=== PATIENT | male | born 1970 | race Two or more races ===

== ENCOUNTER 2022-03-06 11:15 | Outpatient (REF) | payer OTHER, MEDICAID, SELFPAY ==
[2022-03-06 14:01] LABS: Estimated Average Glucose 229 mg/dL; Hemoglobin A1c % 9.6 %
[2022-03-06 14:25] LABS: Alanine Aminotransferase 27 U/L (0-40); Albumin Level 4.7 g/dL (3.5-5.0); Alkaline Phosphatase 55 U/L (39-117); Anion Gap 16 (12-20); Aspartate Amino Transferase 29 U/L (5-37); Bilirubin Total 0.2 mg/dL (0.0-1.0); Blood Urea Nitrogen 14 mg/dL (9-16); Calcium 9.3 mg/dL (8.4-10.2); Carbon Dioxide 26 mmol/L (22-29); Chloride 100 mmol/L (96-108); Cholesterol 217 mg/dL; Estimated Glomerular Filt Rate > 60; Glucose Fasting 205 mg/dL (60-99); HDL Cholesterol 25 mg/dL; Potassium 4.7 mmol/L (3.3-5.1); Sodium 137 mmol/L (135-145); Total Protein 7.7 g/dL (6.5-8.0); Triglycerides 516 mg/dL
[2022-03-06 14:35] LABS: TSH reflex Free T4 1.15 uIU/mL (0.32-4.0)
== END 2022-03-06 11:16 | disposition home or self-care (01) ==
LOC: HO.WFDLDS 11:15
PROVIDERS: Visit Provider Family Medicine
DX: Z00.00 Encounter for general adult medical examination without abnormal findings (principal); Z12.5 Encounter for screening for malignant neoplasm of prostate; R73.01 Impaired fasting glucose
CPT/HCPCS: 36415; 80053; 80061; 83036; 84153; 84443

== ENCOUNTER 2022-05-14 10:11 | Outpatient (REF) | payer OTHER, MEDICAID, SELFPAY ==
[2022-05-14 12:25] LABS: Anion Gap 12 (12-20); Blood Urea Nitrogen 14 mg/dL (9-16); Calcium 9.4 mg/dL (8.4-10.2); Carbon Dioxide 29 mmol/L (22-29); Chloride 102 mmol/L (96-108); Cholesterol 169 mg/dL; Estimated Glomerular Filt Rate > 60; Glucose Fasting 171 mg/dL (60-99); HDL Cholesterol 28 mg/dL; LDL Cholesterol Calculated 105 mg/dl; Sodium 138 mmol/L (135-145); Triglycerides 182 mg/dL
[2022-05-15 09:10] LABS: LDL Cholesterol Direct 99 mg/dL (<100)
== END 2022-05-14 10:12 | disposition home or self-care (01) ==
LOC: HO.WFDLDS 10:11
PROVIDERS: Visit Provider Family Medicine
DX: Z00.00 Encounter for general adult medical examination without abnormal findings (principal); E11.9 Type 2 diabetes mellitus without complications; E78.1 Pure hyperglyceridemia
CPT/HCPCS: 36415; 80048; 80061; 83721

== ENCOUNTER 2023-03-06 14:35 | Outpatient (REF) | payer OTHER, MEDICAID, SELFPAY ==
[2023-03-06 15:31] LABS: Appearance Urine Clear; Color Urine Yellow; Glucose Urine UA Negative (Negative); Leukocyte Esterase Urine Trace (Negative); Nitrite Urine Negative (Negative); Specific Gravity - Urine 1.015 (1.005-1.025); UMIC TRIGGER UA YES; Urine Blood Negative (Negative); Urine Ketones Negative (Negative); Urine Protein Negative (Neg-Trace)
[2023-03-06 15:37] LABS: Bacteria Urine None Seen (None Seen); Hyaline Casts Urine 0-2 /LPF (0-2); RBC Urine 0-2 /HPF (0-2); Squamous Epithelial Cell Urine 0-2 /HPF (0-2); WBC Urine 0-5 /HPF (0-5)
[2023-03-06 15:43] LABS: Creatinine Urine 86.43 mg/dL; Microalbumin Urine < 5.0 mg/L
[2023-03-06 15:51] LABS: Alanine Aminotransferase 24 U/L (0-40); Albumin Level 4.4 g/dL (3.5-5.0); Alkaline Phosphatase 43 U/L (39-117); Anion Gap 10 (12-20); Aspartate Amino Transferase 32 U/L (5-37); Bilirubin Total 0.4 mg/dL (0.0-1.0); Blood Urea Nitrogen 14 mg/dL (9-16); Calcium 9.5 mg/dL (8.4-10.2); Carbon Dioxide 27 mmol/L (22-29); Chloride 105 mmol/L (96-108); Cholesterol 137 mg/dL (<200); Estimated Glomerular Filt Rate > 60; Glucose Fasting 216 mg/dL (60-99); HDL Cholesterol 33 mg/dL (>40); LDL Cholesterol Calculated 77 mg/dL (<100); Potassium 4.4 mmol/L (3.3-5.1); Sodium 138 mmol/L (135-145); Total Protein 7.2 g/dL (6.5-8.0); Triglycerides 137 mg/dL (<150)
[2023-03-06 16:00] LABS: Prostate Specific Antigen Scr 1.66 ng/mL (<0.05-4.0)
[2023-03-06 16:05] LABS: TSH reflex Free T4 0.83 uIU/mL (0.32-4.0)
== END 2023-03-06 14:36 | disposition home or self-care (01) ==
LOC: HO.LAB 14:35
PROVIDERS: PCP Family Medicine; Visit Provider Family Medicine
DX: Z00.00 Encounter for general adult medical examination without abnormal findings (principal); Z12.5 Encounter for screening for malignant neoplasm of prostate; I10 Essential (primary) hypertension
CPT/HCPCS: 36415; 80053; 80061; 81001; 82570; 84153; 84443

== ENCOUNTER 2023-03-11 09:00 | Outpatient (AMB) | payer OTHER, MEDICAID, SELFPAY ==
[2023-03-11 09:04] VITALS: BP 120/78; PULSE 82; O2SAT 97; BMI 36.0
--- NOTE | 2023-03-11 09:04 | A.OFFPC_ITS ---
Vital Signs 03/11/23 09:04 Height 5 ft 10 in Weight 251 lb 2 oz BMI 36.0 BP 120/78 Blood Pressure Location Lt brachial Position Sitting Pulse 82 Pulse Source Pulse Oximeter Pulse Oximetry (%) 97 Oxygen Delivery Method Room Air Intake Visit Reasons: CPE with f/u labs and health maint Intake Note: Patient is here for physical today. Allergies No Known Allergies Allergy (Verified 03/11/23 09:05) Tobacco use date assessed: 03/11/23 Dental Screening Dental Screen Date: 03/11/23 Did you have a dental visit in the last 12 months?: Yes Did you have a dental problem in the last 6 months where you did not have access to dental care?: No Was dental information given to patient?: Patient has dentist HPI CPE with f/u labs and health maint HPI Details 52 y/o male presents for a CPE with f/u labs and health maintenance. Labs were drawn 03/06/23. Reviewed labs with pt. Triglycerides 137. TC 137. LDL 77. HDL low at 33. He is on artovastatin 10mg. A1c 7.5% 03/11/23. He is on Jardiance 25mg, glipizide 5mg, insulin degludec 84 units and insulin Lantus 48 units. Blood pressure today is 120/78. He is on lisinopril 15mg daily. Pt reports decreased hearing. [facility] Medical History Diabetes Surgical History H/O eye surgery Social History Housing: House Patient Tobacco Use Status: Never used Tobacco e-Cigarette/Vaping Use: Never Used Second Hand Smoke Exposure: No service: No Current occupational status: employed Current occupational exposures/hazards: No Cognitive needs: No Hearing needs: No Vision needs: No Questionnaire Thrive Questionnaire Date Thrive assessed: 05/15/22 SHARON-7 AMB Questionnaire SHARON-7 Date SHARON - 7 assessed: 08/15/22 Source: Developed by Drs. Ar Peres, Luann Wong, Philip Cosme and colleagues, with an educational efe from [employer]. Review of Systems Const Denies chills, Denies fatigue, Denies fever(s), Denies headache(s) and Denies weakness Eyes Denies change in vision ENT Denies dizziness, Denies headache(s), Denies hearing loss, Denies nasal congestion, Denies sinus pain, Denies sinus pressure and Denies sore throat Card Denies chest pain, Denies lightheadedness, Denies dyspnea and Denies other (palpitations) Resp Denies cough, Denies dyspnea and Denies wheezing GI Denies abdominal pain, Denies melena, Denies hematochezia, Denies change in bowel habits, Denies dyspepsia and Denies nausea Denies hematuria and Denies dysuria Musc Denies abnormal gait, Denies myalgias, Denies arthralgias, Denies numbness and Denies tingling Skin/Breast Denies rash, Denies unusual bruising and Denies wounds Neuro Denies abnormal gait, Denies dizziness, Denies headache(s), Denies memory loss, Denies numbness, Denies Sensory deficit (Neuro), Denies tingling and Denies we akness Psych Denies anxiety, Denies depression and Denies memory loss Endo Denies cold intolerance, Denies fatigue, Denies heat intolerance, Denies po lydipsia and Denies polyuria David/Lymph Denies easy bleeding and Denies easy bruising Aller/Immun Denies wheezing Physical exam (Primary Care) Vital Signs: Last Vital Signs Pulse 82 03/11/23 09:04 BP 120/78 03/11/23 09:04 Pulse Ox 97 03/11/23 09:04 Oxygen Delivery Method Room Air 03/11/23 09:04 BMI result Body Mass Index 36.0 Tobacco/Smoking Status: Tobacco use Status Tobacco use date assessed 03/11/23 03/11/23 09:05 Patient Tobacco Use Status Never used Tobacco 03/11/23 09:05 e-Cigarette/Vaping Use Never Used 03/11/23 09:05 Thrive Assessment: Date of Thrive Assessment Date Thrive assessed 05/15/22 03/11/23 09:05 Const General: no acute distress, well developed, alert and awake Nutritional Appearance: well nourished Orientation/consciousness: patient oriented x3 HENMT Head: Yes normocephalic and Yes atraumatic Ears: hearing grossly normal bilaterally and TM's normal bilaterally General nose exam: Normal external nose present and Normal nares present Mouth: Normal oral and palatal mucosa present and moist mucous membranes Teeth and gingiva: dentition normal Throat: Yes posterior oropharynx normal Eyes General: appearance normal, both eyes and all related structures Pupils: Equal, round and reactive pupils present and Pupil accommodation reflex normal EOM: EOMs intact bilaterally Neck Neck: Yes normal visual inspection, Yes no lymphadenopathy and Yes trachea midline Thyroid: Thyroid normal Carotids: no bruits Lymphatic: no lymphadenopathy noted Chest Chest palpation & inspection: normal inspection of the chest Resp Effort & Inspection: normal respiratory effort Auscultation: clear to auscultation bilaterally Cardio Rate: regular rate Rhythm: regular rhythm Heart sounds: S1 normal heart sound present, S2 normal heart sound present, no g allops, no murmurs and no rubs Bruits: no abdominal aortic bruits and no carotid bruits GI Palpation (GI): No Abdominal aortic bruit present, Soft to palpation, nontender, No hepatosplenomegaly present and No Rebound tenderness present Auscultation: normal bowel sounds General: Yes no CVA tenderness Back/Spine/Pelvis Back: no CVA tenderness Cervical Spine: cervical ROM normal and No Cervical spine tenderness Thoracic/Lumbar Spine: thoraco-lumbar ROM normal, No pain with thoraco-lumbar ROM, No thoracic spinal tenderness and No lumbar spinal tenderness Skin Other: Raised inflammatory lesions bilateral forearms and ankles Lesions: no lesions Rashes: no rashes Trauma: no lacerations or abrasions Wounds: no wounds Nails: normal Neuro General: patient oriented x3 Cranial nerves: Yes Equal, round and reactive pupils present Cognition (Neuro): normal cognition Gait exam (Neuro): Normal gait present Motor exam (neuro): 5/5 motor strength present throughout Sensory Exam: No Sensory deficit (Neuro) Deep tendon reflexes (DTR's): Right patellar reflex intensity grade: 2+ and Left patellar reflex intensity grade: 2+ Extrem General: Yes normal to inspection and No edema Psych Appearance: grossly normal Affect: normal affect Attitude: cooperative Thought process: Normal thought process present Results AMB Hemoglobin A1c AMB Hemoglobin A1c 7.5 % Last Edit by Joyce Landaverde CMA on 03/11/23 09:21 Results Reviewed Results Reviewed: Laboratory Last Values Hgb A1c (Clinic) 7.5 % (4.0-6.0) H 03/11/23 09:17 Assessment and Plan Assessment & Plan (1) Adult general medical exam: Code(s): Z00.00 - Encounter for general adult medical examination without abnormal findings Plan: 52-year-old male presents for complete physical exam Encouraged healthy diet with active lifestyle and plenty of exercise (2) Hypertension: Code(s): I10 - Essential (primary) hypertension Plan: Blood pressure is controlled. Goal is less than 140/90 Continue current medication (3) Hyperlipidemia: Code(s): E78.5 - Hyperlipidemia, unspecified Plan: TC and LDL cholesterol are controlled on atorvastatin 10 mg daily. HDL is still too low though it has improved. Encouraged exercise (4) Diabetes: Code(s): E11.9 - Type 2 diabetes mellitus without complications Plan: A1c has worsened from 7.1% to 7.5%. Goal is less than 7.0% He has been taking glipizide ER 5 mg daily and I have encouraged him to increase this to 10 mg daily. He will continue his regimen of Jardiance, Lantus and metformin as prescribed. He is taking Lantus 48 units daily though med list says 44. Will update med list. 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 He says he has difficulty wearing short sleeves due to temperatures. He does say he wears long pants/jeans Will give him a script for betamethasone ointment Referred to Dermatology (8) Screening for prostate cancer: Code(s): Z12.5 - Encounter for screening for malignant neoplasm of prostate Plan: PSA was within normal limits (9) Screening for colon cancer: Code(s): Z12.11 - Encounter for screening for malignant neoplasm of colon Plan: Patient is uncertain of his last colonoscopy date or when recommended follow-up is. Will request records Orders: Orders AMB Hemoglobin A1c Today Z13.9 - Encounter for screening, unspecified Referrals Audiology Referral H91.90 - Unspecified hearing loss, unspecified ear Dermatology Referral L25.9 - Unspecified contact dermatitis, unspecified cause Medical Weight Management Referral E11.9 - Type 2 diabetes mellitus without complications, E66.9 - Obesity, unspecified, Z68.36 - Body mass index [BMI] 36.0-36.9, adult Medications: New betamethasone valerate 0.1% 1 appl topical BID PRN 60 grams 1RF skin irritation 30 days Changed From insulin glargine (Lantus Solostar U-100 Insulin) 44 units (0.44 mL) subcut BID 30 days 27 mL 4RF E11.9 - Type 2 diabetes mellitus without complications To insulin glargine (Lantus Solostar U-100 Insulin) 48 units (0.48 mL) subcut BID 30 mL 4RF 30 days E11.9 - Type 2 diabetes mellitus without complications Refilled glipizide ER 10 mg PO DAILY 30 tabs 2RF 30 days Coding Level of Care Code Est Pt Level 3 (95151) Est Pt Prev Care 40-64y(47779) Diagnoses Adult general medical exam Z00.00 Hypertension I10 Hyperlipidemia E78.5 Diabetes E11.9 Decreased hearing H91.90 BMI 36.0-36.9,adult Z68.36 Contact dermatitis L25.9 Screening for prostate cancer Z12.5 Screening for colon cancer Z12.11
== END 2023-03-11 09:54 | disposition home or self-care (01) ==
PROVIDERS: Visit Provider Family Medicine
DX: Z00.00 Encounter for general adult medical examination without abnormal findings (principal); E11.9 Type 2 diabetes mellitus without complications; I10 Essential (primary) hypertension; Z68.36 Body mass index [BMI] 36.0-36.9, adult; E78.5 Hyperlipidemia, unspecified; H91.93 Unspecified hearing loss, bilateral; L25.9 Unspecified contact dermatitis, unspecified cause
CPT/HCPCS: 83036; 99396

== ENCOUNTER 2023-07-03 07:45 | Outpatient (REF) | payer OTHER, MEDICAID, SELFPAY | END 2023-07-03 07:46 | disposition home or self-care (01) | LOC: HO.SH 07:45 | PROVIDERS: Visit Provider Family Medicine | DX: Z01.118 Encounter for examination of ears and hearing with other abnormal findings (principal); H90.3 Sensorineural hearing loss, bilateral | CPT/HCPCS: 92557; 92567 ==

== ENCOUNTER 2023-07-15 08:21 | Outpatient (AMB) | payer OTHER, MEDICAID, SELFPAY ==
[2023-07-15 08:24] VITALS: BP 132/60; PULSE 67; RESP 12; O2SAT 97; BMI 35.0
--- NOTE | 2023-07-15 08:24 | MHC.PC.OV ---
Vital Signs 07/15/23 08:24 Height 5 ft 10 in Weight 244 lb BMI 35.0 BP 132/60 Blood Pressure Location Rt brachial Position Sitting Respiration 12 Pulse 67 Pulse Source Pulse Oximeter Pulse Oximetry (%) 97 Oxygen Delivery Method Room Air Intake Visit Reasons: f/u diabetes and chronic conditions, see comments Intake Note: Patient is here for a follow up of diabetic care and chronic conditions. Patient's last A1C was completed on 05/20/23 with a result of 6.4. Patient reports he has no concerns at this time. Quantity Surveyor Required: No Accompanied by: Self / Same As Patient Allergies No Known Allergies Allergy (Verified 07/15/23 08:33) Tobacco use date assessed: 07/15/23 Dental Screening Dental Screen Date: 07/15/23 Did you have a dental visit in the last 12 months?: Yes Did you have a dental problem in the last 6 months where you did not have access to dental care?: No Was dental information given to patient?: Patient has dentist HPI f/u diabetes and chronic conditions, see comments HPI Details A1c?in?February?was?7.5%?and?I?increased?his?glipizide?ER?from?5?mg?daily?to?10?mg?daily.?? Continued?Jardiance?Lantus?and?metformin. He?saw?his?registered nurse first assistant?in?April?and?A1c?was?6.4%. He?has?lost?about?7?lb?since?February, and?endocrine?has?reduced?glipizide?ER?back?to?5?mg?daily. Blood pressure today 132/60. He is on lisinopril 15mg. Taking?lisinopril?for?blood?pressure [facility] Medical History Diabetes Surgical History H/O eye surgery Social History Housing: House Patient Tobacco Use Status: Never used Tobacco e-Cigarette/Vaping Use: Never Used Second Hand Smoke Exposure: No service: No Current occupational status: employed Current occupational exposures/hazards: No Cognitive needs: No Hearing needs: No Vision needs: No Questionnaire PHQ-9 Over the last 2 weeks, how often have you been bothered by any of the following problems? 1. Little interest or pleasure in doing things: not at all 2. Feeling down, depressed, or hopeless: not at all 3. Trouble falling or staying asleep, or sleeping too much: not at all 4. Feeling tired or having little energy: not at all 5. Poor appetite or overeating: not at all 6. Feeling bad about yourself - or that you are a failure or have let yourself or your family down: not at all 7. Trouble concentrating on things, such as reading the newspaper or watching television: not at all 8. Moving or speaking so slowly that other people could have noticed. Or the opposite - being so fidgety or restless that you have been moving around a lot more than usual: not at all 9. Thoughts that you would be better off or of hurting yourself in some way: not at all Total score: 0 Depression Screening Interpretation: Negative Depression Screening Done: Yes 39532 - PHQ-9 Billing: Yes Source: Developed by Drs. Ar Peres, Luann Wong, Philip Cosme and colleagues, with an educational efe from [employer]. Thrive Questionnaire Date Thrive assessed: 05/15/22 SHARON-7 AMB Questionnaire SHARON-7 Date SHARON - 7 assessed: 08/15/22 Source: Developed by Drs. Ar Peres, Philip Tesfaye and colleagues, with an educational efe from [employer]. Physical exam (Primary Care) Vital Signs: Last Vital Signs Pulse 67 07/15/23 08:24 Resp 12 07/15/23 08:24 BP 132/60 07/15/23 08:24 Pulse Ox 97 07/15/23 08:24 Oxygen Delivery Method Room Air 07/15/23 08:24 BMI result Body Mass Index 35.0 Tobacco/Smoking Status: Tobacco use Status Tobacco use date assessed 07/15/23 07/15/23 08:34 Patient Tobacco Use Status Never used Tobacco 07/15/23 08:27 e-Cigarette/Vaping Use Never Used 07/15/23 08:27 PHQ-9: PHQ-9 Score PHQ-9: Total score 0 07/15/23 08:47 Depression Screening Interpretation: Negative Thrive Assessment: Date of Thrive Assessment Date Thrive assessed 05/15/22 07/15/23 08:27 Assessment and Plan Assessment & Plan (1) Diabetes: Code(s): E11.9 - Type 2 diabetes mellitus without complications Plan: A1c?at?his?endocrinology?appointment?on?05/20/2024?was?6.4%.??Good?control.??Goal?is?less?than?7.0%. Endocrinology?again?lowered?his?glipizide?ER?back?to?5?mg?daily?and?continued?Jardiance,?Lantus?and?metformin. He?has?lost?some?weight?and?I?encouraged?him?to?continue?to?do?so. Work?on?diabetic?diet?and?exercise He?says?he?has?an?upcoming?eye?appointment (2) Hypertension: Code(s): I10 - Essential (primary) hypertension Plan: Blood?pressure?is?controlled.??Goal?is?less?than?140/90 Continue?current?medication?regimen Coding Level of Care Code Est Pt Level 3 (61945) Diagnoses Diabetes E11.9 Hypertension I10
== END 2023-07-15 08:57 | disposition home or self-care (01) ==
PROVIDERS: PCP Family Medicine; Visit Provider Family Medicine
DX: E11.9 Type 2 diabetes mellitus without complications (principal); I10 Essential (primary) hypertension
CPT/HCPCS: 99213

== ENCOUNTER 2023-11-25 09:44 | Outpatient (AMB) | payer OTHER, MEDICAID, SELFPAY ==
[2023-11-25 10:12] VITALS: BP 134/74; PULSE 74; O2SAT 98; BMI 30.9
--- NOTE | 2023-11-25 10:12 | MHC.PC.OV ---
Vital Signs 11/25/23 10:12 Height 5 ft 10 in Weight 215 lb 2 oz BMI 30.9 BP 134/74 Blood Pressure Location Lt brachial Position Sitting Pulse 74 Pulse Source Pulse Oximeter Pulse Oximetry (%) 98 Oxygen Delivery Method Room Air Intake Visit Reasons: f/u health conditions Intake Note: Patient is here to follow up on diabetes and hypertension. Allergies No Known Allergies Allergy (Verified 11/25/23 10:13) Medication List - Last Reconciled 11/25/23 by Joseluis Ohara MD atorvastatin 10 mg PO BEDTIME 30 days betamethasone valerate 0.1% 1 appl topical BID PRN 30 days empagliflozin (Jardiance) 25 mg PO DAILY fenofibrate 160 mg PO DAILY 30 days glipizide ER 10 mg PO DAILY 30 days insulin degludec (Tresiba FlexTouch U-200 insulin) 84 units (0.42 mL) subcut BEDTIME 30 days insulin glargine (Lantus Solostar U-100 Insulin) 48 units (0.48 mL) subcut BID 30 days lisinopril 15 mg PO QAM metformin 0 mg PO mupirocin 2% 1 appl topical BID 10 days pen needle, diabetic (BD Ultra-Fine Short Pen Needle) As directed Tobacco use date assessed: 11/25/23 Dental Screening Dental Screen Date: 07/15/23 HPI f/u health conditions HPI Details 52 y/o male presents to f/u diabetes and hypertension. Blood pressure today 134/74. He is on lisinopril 15mg. A1c today 11/25/23 7.1%. He is on Jardiance 25mg, glipizide 5mg, Lantus 48 units b.i.d. He denies any low blood sugars. [facility] Medical History Diabetes Surgical History H/O eye surgery Social History Housing: House Patient Tobacco Use Status: Never used Tobacco e-Cigarette/Vaping Use: Never Used Second Hand Smoke Exposure: No service: No Current occupational status: employed Current occupational exposures/hazards: No Cognitive needs: No Hearing needs: No Vision needs: No Questionnaire Thrive Questionnaire Date Thrive assessed: 05/15/22 SHARON-7 AMB Questionnaire SHARON-7 Date SHARON - 7 assessed: 08/15/22 Source: Developed by Drs. Ar Peres, Luann Wong, Philip Cosme and colleagues, with an educational efe from [employer]. Review of Systems Const Denies chills, Denies fatigue, Denies fever(s), Denies headache(s) and Denies weakness ENT Denies dizziness and Denies headache(s) Card Denies dyspnea Resp Denies cough, Denies dyspnea, Denies wheezing and Denies other (shortness of breath) Musc Denies numbness and Denies tingling Neuro Denies dizziness, Denies headache(s), Denies numbness, Denies tingling and Denies weakness Psych Denies anxiety and Denies depression Endo Denies fatigue Aller/Immun Denies wheezing Physical exam (Primary Care) Vital Signs: Last Vital Signs Pulse 74 11/25/23 10:12 BP 134/74 11/25/23 10:12 Pulse Ox 98 11/25/23 10:12 Oxygen Delivery Method Room Air 11/25/23 10:12 BMI result Body Mass Index 30.9 Tobacco/Smoking Status: Tobacco use Status Tobacco use date assessed 11/25/23 11/25/23 10:14 Patient Tobacco Use Status Never used Tobacco 11/25/23 10:14 e-Cigarette/Vaping Use Never Used 11/25/23 10:14 Thrive Assessment: Date of Thrive Assessment Date Thrive assessed 05/15/22 11/25/23 10:14 Const General: well developed; No acute distress Nutritional Appearance: well nourished Orientation/consciousness: patient oriented x3 HENMT Head: Yes normocephalic and Yes atraumatic Eyes General: appearance normal, both eyes and all related structures Pupils: Equal, round and reactive pupils present EOM: EOMs intact bilaterally Resp Effort & Inspection: normal respiratory effort Auscultation: clear to auscultation bilaterally Cardio Rate: regular rate Rhythm: regular rhythm Heart sounds: S1 normal heart sound present, S2 normal heart sound present, no gallops, no murmurs and no rubs Neuro General: patient oriented x3 and gait normal Cranial nerves: Yes Equal, round and reactive pupils present Psych Affect: normal affect Results AMB Hemoglobin A1c AMB Hemoglobin A1c 7.1 % Last Edit by Joyce Landaverde CMA on 11/25/23 10:31 Results Reviewed Results Reviewed: Laboratory Last Values Hgb A1c (Clinic) 7.1 % (4.0-6.0) H 11/25/23 10:30 Assessment and Plan Assessment & Plan (1) Diabetes: Code(s): E11.9 - Type 2 diabetes mellitus without complications Plan: A1c?7.1%. ?Mildly?suboptimal?control.??Goal?is?less?than?7.0% Increase?Lantus?from?48?units?b.i.d.?to?50?units?b.i.d. Follow-up?with?endocrinology (2) Hypertension: Code(s): I10 - Essential (primary) hypertension Plan: Blood?pressure?is?controlled.??Goal?is?less?than?140/90 Continue?current?medication (3) Decreased hearing: Code(s): H91.90 - Unspecified hearing loss, unspecified ear Plan: Audiogram?shows?diminished?hearing?that?would?likely?benefit?from?amplification Referred?him?to?ENT Orders: Orders AMB Hemoglobin A1c Today Z13.9 - Encounter for screening, unspecified Referrals Ear/Nose/Throat Referral H91.90 - Unspecified hearing loss, unspecified ear Medications: Changed From insulin glargine (Lantus Solostar U-100 Insulin) 48 units (0.48 mL) subcut BID 30 days 30 mL 4RF E11.9 - Type 2 diabetes mellitus without complications To insulin glargine (Lantus Solostar U-100 Insulin) 50 units (0.5 mL) subcut BID 30 days 30 mL 4RF E11.9 - Type 2 diabetes mellitus without complications From glipizide ER 10 mg PO DAILY 30 days 30 tabs 2RF To glipizide ER 5 mg PO DAILY 30 days 30 tabs 2RF Discontinued insulin degludec (Tresiba FlexTouch U-200 insulin) Discontinued Reason: Patient no longer taking 84 units (0.42 mL) subcut BEDTIME 30 days 15 mL 4RF Coding Level of Care Code Est Pt Level 4 (03738) Diagnoses Diabetes E11.9 Hypertension I10 Decreased hearing H91.90
== END 2023-11-25 10:46 | disposition home or self-care (01) ==
PROVIDERS: PCP Family Medicine; Visit Provider Family Medicine
DX: E11.9 Type 2 diabetes mellitus without complications (principal); I10 Essential (primary) hypertension; H91.93 Unspecified hearing loss, bilateral
CPT/HCPCS: 83036; 99214

== ENCOUNTER 2024-02-17 08:24 | Outpatient (AMB) | payer OTHER, MEDICAID, SELFPAY ==
--- NOTE | 2024-02-17 08:40 | A.OFFPC_ITS ---
Vital Signs 02/17/24 08:42 02/17/24 08:46 Height 5 ft 8.35 in Weight 238 lb 8 oz BMI 35.9 BP 118/50 L 118/50 L Blood Pressure Location Rt brachial Lt brachial Position Sitting Sitting Respiration 16 Pulse 87 Pulse Source Pulse Oximeter Temp 97.7 F Temp Source Tympanic Pulse Oximetry (%) 98 Oxygen Delivery Method Room Air Intake Visit Reasons: f/u diabetes, hypertension Intake Note: f/u on DM and HTN Allergies No Known Allergies Allergy (Verified 02/17/24 08:41) Tobacco use date assessed: 11/25/23 Dental Screening Dental Screen Date: 07/15/23 HPI f/u diabetes, hypertension HPI Details Patient?presents?to?follow-up?diabetes?and?hypertension Taking?lisinopril?for?his?blood?pressure?and?blood?pressure?today?appears?well?c ontrolled No?problems?with?this?medication He?is?working?on?avoiding?salt?and?trying?to?get?exercise. He?is?taking?Jardiance,?glipizide,?metformin?and?Lantus?for?his?blood?sugar. Had?increased?Lantus?from?48?units?b.i.d.?to?50?units?b.i.d.?at?his?last?visit?b ecause?his?A1c?in?November?was?7.1% He?notes?now?that?his?morning?blood?sugars?are?between?90?and?110 No?low?blood?sugars Patient?feels?well.??No?new?complaints [facility] Medical History Diabetes Surgical History H/O eye surgery Social History Housing: House Patient Tobacco Use Status: Never used Tobacco e-Cigarette/Vaping Use: Never Used Second Hand Smoke Exposure: No service: No Current occupational status: employed Current occupational exposures/hazards: No Cognitive needs: No Hearing needs: No Vision needs: No Questionnaire Thrive Questionnaire Date Thrive assessed: 05/15/22 SHARON-7 AMB Questionnaire SHARON-7 Date SHARON - 7 assessed: 08/15/22 Source: Developed by Drs. Ar Peres, Luann Wong, Philip Cosme and colleagues, with an educational efe from [employer]. Review of Systems Const Denies chills, Denies fatigue, Denies fever(s), Denies headache(s) and Denies weakness ENT Denies dizziness and Denies headache(s) Card Denies chest pain, Denies lightheadedness, Denies dyspnea and Denies other (Palpitations) Resp Denies cough, Denies dyspnea, Denies wheezing and Denies other ( shortness of breath) Musc Denies numbness and Denies tingling Neuro Denies dizziness, Denies headache(s), Denies numbness, Denies tingling, Denies paresthesias and Denies weakness Psych Denies anxiety and Denies depression Endo Denies fatigue Aller/Immun Denies wheezing Physical exam (Primary Care) Vital Signs: Last Vital Signs Temp 97.7 F 02/17/24 08:42 Pulse 87 02/17/24 08:42 Resp 16 02/17/24 08:42 BP 118/50 L 02/17/24 08:46 Pulse Ox 98 02/17/24 08:42 Oxygen Delivery Method Room Air 02/17/24 08:42 BMI result Body Mass Index 35.9 Tobacco/Smoking Status: Tobacco use Status Tobacco use date assessed 11/25/23 02/17/24 08:48 Patient Tobacco Use Status Never used Tobacco 02/17/24 08:48 e-Cigarette/Vaping Use Never Used 02/17/24 08:48 Thrive Assessment: Date of Thrive Assessment Date Thrive assessed 05/15/22 02/17/24 08:48 Const General: no acute distress and well developed Nutritional Appearance: well nourished Orientation/consciousness: patient oriented x3 HENMT Head: Yes normocephalic and Yes atraumatic Eyes General: appearance normal, both eyes and all related structures Pupils: Equal, round and reactive pupils present EOM: EOMs intact bilaterally Resp Effort & Inspection: normal respiratory effort Auscultation: clear to auscultation bilaterally Cardio Rate: regular rate Rhythm: regular rhythm Heart sounds: S1 normal heart sound present, S2 normal heart sound present, no gallops, no murmurs and no rubs Neuro General: patient oriented x3 and gait normal Cranial nerves: Yes Equal, round and reactive pupils present Psych Affect: normal affect Assessment and Plan Assessment & Plan (1) Diabetes: Code(s): E11.9 - Type 2 diabetes mellitus without complications Plan: Blood?sugars?appear?well?controlled Continue?diabetic?diet Continue?current?medication?regimen.??No?medication?changes?today. (2) Hypertension: Code(s): I10 - Essential (primary) hypertension Plan: Blood?pressure?is?well?controlled.??Goal?is?less?than?140/90 Continue?current?medication. Coding Level of Care Code Est Pt Level 3 (15173) Diagnoses Diabetes E11.9 Hypertension I10
[2024-02-17 08:42] VITALS: BP 118/50; PULSE 87; RESP 16; TEMP 36.5; O2SAT 98; BMI 35.9
[2024-02-17 08:46] VITALS: BP 118/50
== END 2024-02-17 09:01 | disposition home or self-care (01) ==
PROVIDERS: PCP Family Medicine; Visit Provider Family Medicine
DX: E11.9 Type 2 diabetes mellitus without complications (principal); I10 Essential (primary) hypertension
CPT/HCPCS: 99213

== ENCOUNTER 2024-03-18 08:52 | Outpatient (AMB) | payer OTHER, MEDICAID, SELFPAY ==
--- NOTE | 2024-03-18 09:10 | A.OFFPC_ITS ---
Vital Signs 03/18/24 09:15 Height 5 ft 8.35 in Weight 234 lb 2 oz BMI 35.2 BP 120/50 L Blood Pressure Location Lt brachial Position Sitting Respiration 12 Pulse 81 Pulse Source Pulse Oximeter Temp 96.2 F L Temp Source Tympanic Pulse Oximetry (%) 98 Oxygen Delivery Method Room Air Intake Visit Reasons: Annual PE Intake Note: CPE Allergies No Known Allergies Allergy (Verified 03/18/24 09:11) Medication List - Last Reconciled 03/18/24 by Joseluis Ohara MD atorvastatin 10 mg PO BEDTIME 30 days betamethasone valerate 0.1% 1 appl topical BID PRN 30 days empagliflozin (Jardiance) 25 mg PO DAILY fenofibrate 160 mg PO DAILY 30 days glipizide ER 5 mg PO DAILY 30 days insulin glargine (Lantus Solostar U-100 Insulin) 50 units (0.5 mL) subcut BID 30 days lisinopril 15 mg PO QAM metformin 0 mg PO mupirocin 2% 1 appl topical BID 10 days pen needle, diabetic (BD Ultra-Fine Short Pen Needle) As directed Tobacco use date assessed: 11/25/23 Dental Screening Dental Screen Date: 07/15/23 HPI Annual PE HPI Details 53 y/o male presents for a CPE with f/u labs and health maintenance. No recent labs to review. Last A1c 11/25/23 7.1%. He is on glipizide 5mg, Lantus 50 units, metformin. A1c today 03/18/24 is 6.6%. Blood pressure today 120/50, 81p. He is on lisinopril 15mg daily. Notes he eats a healthy diet. Has lost weight since his last office visit. 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 [facility] Medical History Diabetes Surgical History H/O eye surgery Social History (Updated 03/18/24 @ 09:12 by Aayush Simpson MA) Housing: House Patient Tobacco Use Status: Never used Tobacco e-Cigarette/Vaping Use: Never Used Second Hand Smoke Exposure: No Use of substances other than those prescribed or required for medical reasons: No service: No Current occupational status: employed Current occupational exposures/hazards: No Cognitive needs: No Hearing needs: No Vision needs: No Questionnaire PHQ-9 Over the last 2 weeks, how often have you been bothered by any of the following problems? 1. Little interest or pleasure in doing things: not at all 2. Feeling down, depressed, or hopeless: not at all 3. Trouble falling or staying asleep, or sleeping too much: not at all 4. Feeling tired or having little energy: not at all 5. Poor appetite or overeating: not at all 6. Feeling bad about yourself - or that you are a failure or have let yourself or your family down: not at all 7. Trouble concentrating on things, such as reading the newspaper or watching television: not at all 8. Moving or speaking so slowly that other people could have noticed. Or the opposite - being so fidgety or restless that you have been moving around a lot more than usual: not at all 9. Thoughts that you would be better off or of hurting yourself in some way: not at all Total score: 0 Depression Screening Interpretation: Negative Depression Screening Done: Yes 41216 - PHQ-9 Billing: Yes Source: Developed by Drs. Ar Peres, Luann Wong, Philip Cosme and colleagues, with an educational efe from [employer]. Thrive Questionnaire Date Thrive assessed: 03/18/24 I am a: Patient What is your living situation today?: I have a steady place to live Within the past 12 months, did the food you bought not last and you didn't have the money to get more?: Never true Within the past 12 months, did you worry whether your food would run out before you got money to buy more?: Never true Do you have trouble paying for medicines?: No Do you have trouble getting transportation to medical appointments?: No Do you have trouble paying your heating and electricity bill?: No Do you have trouble taking care of your child, family member or friend?: No Do you have trouble with day-to-day activities such as bathing, preparing meals, shopping, managing finances, etc.?: No Are you currently unemployed and looking for a job?: No Are you interested in more education?: No Please select the resources that you would like help with: None Currently or been in a relationship where the following occur: No concerns reported THRIVE Score: 0 AUDIT C Alcohol Use Questionnaire (AUDIT-C) 1. How often do you have a drink containing alcohol?: Never 3. How often do you have six or more drinks on one occasion?: Never Total Score: 0 Score Reviewed/Action Taken: Yes SHARON-7 AMB Questionnaire SHARON-7 Date SHARON - 7 assessed: 03/18/24 Feeling nervous, anxious, or on edge: 0 = Not at all Not being able to stop or control worryin = Not at all Worrying too much about different things: 0 = Not at all Trouble relaxin = Not at all Being so restless that it is hard to sit still: 0 = Not at all Becoming easily annoyed or irritable: 0 = Not at all Feeling afraid as if something awful might happen: 0 = Not at all Total SHARON-7 score (0-4 normal; 5-9 mild; 10-14 moderate; 15-21 severe): 0 Source: Developed by Drs. Ar Peres, Luann Wong, Philip Cosme and colleagues, with an educational efe from [employer]. SHARON-7 Assessment Billing SHARON-7 Assessment Tool: SHARON-7 Assessment 26912 Review of Systems Const Denies chills, Denies fatigue, Denies fever(s), Denies headache(s) and Denies weakness Eyes Denies change in vision ENT Denies dizziness, Denies headache(s), Denies hearing loss, Denies nasal congestion, Denies sinus pain, Denies sinus pressure and Denies sore throat Card Denies chest pain, Denies lightheadedness, Denies dyspnea and Denies other (palpitations) Resp Denies cough, Denies dyspnea and Denies wheezing GI Denies abdominal pain, Denies melena, Denies hematochezia, Denies change in bowel habits, Denies dyspepsia and Denies nausea Denies hematuria and Denies dysuria Musc Denies abnormal gait, Denies myalgias, Denies arthralgias, Denies numbness and Denies tingling Skin/Breast Denies rash, Denies unusual bruising and Denies wounds Neuro Denies abnormal gait, Denies dizziness, Denies headache(s), Denies memory loss, Denies numbness, Denies Sensory deficit (Neuro), Denies tingling and Denies weakness Psych Denies anxiety, Denies depression and Denies memory loss Endo Denies cold intolerance, Denies fatigue, Denies heat intolerance, Denies polydipsia and Denies polyuria David/Lymph Denies easy bleeding and Denies easy bruising Aller/Immun Denies wheezing Physical exam (Primary Care) Vital Signs: Last Vital Signs Temp 96.2 F L 03/18/24 09:15 Pulse 81 03/18/24 09:15 Resp 12 03/18/24 09:15 BP 120/50 L 03/18/24 09:15 Pulse Ox 98 03/18/24 09:15 Oxygen Delivery Method Room Air 03/18/24 09:15 BMI result Body Mass Index 35.2 Tobacco/Smoking Status: Tobacco use Status Tobacco use date assessed 11/25/23 03/18/24 09:14 Patient Tobacco Use Status Never used Tobacco 03/18/24 09:14 e-Cigarette/Vaping Use Never Used 03/18/24 09:14 PHQ-9: PHQ-9 Score PHQ-9: Total score 0 03/18/24 09:14 Depression Screening Interpretation: Negative Thrive Assessment: Date of Thrive Assessment Date Thrive assessed 03/18/24 03/18/24 09:14 Currently or been in a relationship where the following occur: No concerns reported Const General: no acute distress, well developed, alert and awake Nutritional Appearance: well nourished Orientation/consciousness: patient oriented x3 HENMT Head: Yes normocephalic and Yes atraumatic Ears: hearing grossly normal bilaterally and TM's normal bilaterally General nose exam: Normal external nose present and Normal nares present Mouth: Normal oral and palatal mucosa present and moist mucous membranes Teeth and gingiva: dentition normal Throat: Yes posterior oropharynx normal Eyes General: appearance normal, both eyes and all related structures Pupils: Equal, round and reactive pupils present and Pupil accommodation reflex normal EOM: EOMs intact bilaterally Neck Neck: Yes normal visual inspection, Yes no lymphadenopathy and Yes trachea midline Thyroid: Thyroid normal Carotids: no bruits Lymphatic: no lymphadenopathy noted Chest Chest palpation & inspection: normal inspection of the chest Resp Effort & Inspection: normal respiratory effort Auscultation: clear to auscultation bilaterally Cardio Rate: regular rate Rhythm: regular rhythm Heart sounds: S1 normal heart sound present, S2 normal heart sound present, no gallops, no murmurs and no rubs Bruits: no abdominal aortic bruits and no carotid bruits GI Palpation (GI): No Abdominal aortic bruit present, Soft to palpation, nontender, No hepatosplenomegaly present and No Rebound tenderness present Auscultation: normal bowel sounds General: Yes no CVA tenderness Back/Spine/Pelvis Back: no CVA tenderness Cervical Spine: cervical ROM normal and No Cervical spine tenderness Thoracic/Lumbar Spine: thoraco-lumbar ROM normal, No pain with thoraco-lumbar ROM, No thoracic spinal tenderness and No lumbar spinal tenderness Skin Lesions: no lesions Rashes: no rashes Trauma: no lacerations or abrasions Wounds: no wounds Nails: normal Neuro General: patient oriented x3 Cranial nerves: Yes Equal, round and reactive pupils present Cognition (Neuro): normal cognition Gait exam (Neuro): Normal gait present Motor exam (neuro): 5/5 motor strength present throughout Sensory Exam: No Sensory deficit (Neuro) Deep tendon reflexes (DTR's): Right patellar reflex intensity grade: 2+ and Left patellar reflex intensity grade: 2+ Extrem General: Yes normal to inspection and No edema Psych Appearance: grossly normal Affect: normal affect Attitude: cooperative Thought process: Normal thought process present Assessment and Plan Assessment & Plan (1) Adult general medical exam: Code(s): Z00.00 - Encounter for general adult medical examination without abnormal findings Plan: 53-year-old?male?presents?for?complete?physical?exam Encouraged?healthy?diet?with?active?lifestyle?and?plenty?of?exercise (2) Hypertension: Code(s): I10 - Essential (primary) hypertension Plan: Blood?pressure?is?controlled.??Goal?is?less?than?140/90 Continue?current?medication (3) Diabetes: Code(s): E11.9 - Type 2 diabetes mellitus without complications Plan: A1c?6.6%.??Good?control.??Goal?is?less?than?7.0% Continue?current?medication (4) Hyperlipidemia: Code(s): E78.5 - Hyperlipidemia, unspecified Plan: Patient?is?on?atorvastatin. Recheck?lipids?with?next?lab?draw.??This?is?ordered?and?patient?will?get?this?dr hua?within?the?month. (5) Screening for prostate cancer: Code(s): Z12.5 - Encounter for screening for malignant neoplasm of prostate Plan: PSA?is?ordered?and?patient?will?get?this?drawn?within?the?month.??Will?follow- up?at?next?encounter?by?telemedicine (6) Screening for colon cancer: Code(s): Z12.11 - Encounter for screening for malignant neoplasm of colon Plan: Unclear?when?or?where?patient?had?a?colonoscopy?if?any Referred?to?GI Orders: Referrals Gastroenterology Referral Z12.11 - Encounter for screening for malignant neoplasm of colon Coding Level of Care Code Est Pt Level 3 (58755) Est Pt Prev Care 40-64y(36668) Diagnoses Adult general medical exam Z00.00 Hypertension I10 Diabetes E11.9 Hyperlipidemia E78.5 Screening for prostate cancer Z12.5 Screening for colon cancer Z12.11 Additional Codes SHARON-7 Assessment Billing - SHARON-7 Assessment Tool: SHARON-7 Assessment 47204 ([id number])
[2024-03-18 09:15] VITALS: BP 120/50; PULSE 81; RESP 12; TEMP 35.7; O2SAT 98; BMI 35.2
== END 2024-03-18 09:46 | disposition home or self-care (01) ==
PROVIDERS: PCP Family Medicine; Visit Provider Family Medicine
DX: Z00.00 Encounter for general adult medical examination without abnormal findings (principal); I10 Essential (primary) hypertension; E11.69 Type 2 diabetes mellitus with other specified complication; E78.5 Hyperlipidemia, unspecified; Z12.5 Encounter for screening for malignant neoplasm of prostate; Z12.11 Encounter for screening for malignant neoplasm of colon

== ENCOUNTER → 2024-03-18 08:52 | Outpatient (BNVA) | payer OTHER, MEDICAID, SELFPAY | PROVIDERS: PCP Family Medicine; Visit Provider Family Medicine | DX: Z00.00 Encounter for general adult medical examination without abnormal findings (principal); I10 Essential (primary) hypertension; E11.9 Type 2 diabetes mellitus without complications; E78.5 Hyperlipidemia, unspecified; Z79.899 Other long term (current) drug therapy | CPT/HCPCS: 83036; 96127 ==

== ENCOUNTER 2024-06-22 12:03 | Outpatient (AMB) | payer OTHER, MEDICAID, SELFPAY ==
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
[2024-06-22 12:58] VITALS: BP 110/60; PULSE 80; RESP 14; BMI 34.8
== END 2024-06-22 13:49 | disposition home or self-care (01) ==
PROVIDERS: PCP Family Medicine; Visit Provider Family Medicine
DX: F41.9 Anxiety disorder, unspecified (principal); E11.9 Type 2 diabetes mellitus without complications

== ENCOUNTER → 2024-06-22 12:03 | Outpatient (BNVA) | payer OTHER, MEDICAID, SELFPAY | PROVIDERS: PCP Family Medicine; Visit Provider Family Medicine | DX: F41.9 Anxiety disorder, unspecified (principal); E11.9 Type 2 diabetes mellitus without complications; Z79.4 Long term (current) use of insulin | CPT/HCPCS: 96127 ==

== ENCOUNTER 2024-08-12 11:54 | Outpatient (AMB) | payer OTHER, MEDICAID, SELFPAY ==
[2024-08-12 12:01] VITALS: BP 142/76; PULSE 90; O2SAT 96; BMI 36.6
--- NOTE | 2024-08-12 12:01 | MHC.PC.OV ---
Vital Signs 08/12/24 12:01 Height 5 ft 8.35 in Weight 243 lb BMI 36.6 BP 142/76 H Blood Pressure Location Lt brachial Position Sitting Pulse 90 Pulse Source Pulse Oximeter Pulse Oximetry (%) 96 Oxygen Delivery Method Room Air Intake Visit Reasons: f/u anxiety Allergies No Known Allergies Allergy (Verified 08/12/24 12:04) Tobacco use date assessed: 08/12/24 Dental Screening Dental Screen Date: 08/12/24 Did you have a dental visit in the last 12 months?: Yes Did you have a dental problem in the last 6 months where you did not have access to dental care?: No Was dental information given to patient?: Patient has dentist HPI f/u anxiety HPI Details 53 y/o male presents to f/u severe anxiety and ? cognitive changes. Had referred [place] [facility] [place]. PHQ-9, SHARON-7 10 today. Notes mood is unchanged. He has an appt. with the consult team tomorrow. Denies any SI/HI or plans. HPI Comments History of Present Illness Details Documentation assistance for Joseluis Ohara MD, was provided by Ricardo Laboy, Assembly Manager on 08/12/2024 at 12:22 PM EST. I, Dr. Ohara, have read, observed, and verified documentation. [facility] Medical History Diabetes Surgical History H/O eye surgery Social History Housing: House Patient Tobacco Use Status: Never used Tobacco e-Cigarette/Vaping Use: Never Used Second Hand Smoke Exposure: No service: No Current occupational status: employed Current occupational exposures/hazards: No Cognitive needs: No Hearing needs: No Vision needs: No Questionnaire PHQ-9 Over the last 2 weeks, how often have you been bothered by any of the following problems? 1. Little interest or pleasure in doing things: not at all 2. Feeling down, depressed, or hopeless: nearly every day 3. Trouble falling or staying asleep, or sleeping too much: nearly every day 4. Feeling tired or having little energy: not at all 5. Poor appetite or overeating: not at all 6. Feeling bad about yourself - or that you are a failure or have let yourself or your family down: several days 7. Trouble concentrating on things, such as reading the newspaper or watching television: not at all 8. Moving or speaking so slowly that other people could have noticed. Or the opposite - being so fidgety or restless that you have been moving around a lot more than usual: not at all 9. Thoughts that you would be better off or of hurting yourself in some way: more than half the days Total score: 9 Depression Screening Interpretation: Positive Depression Screening Done: Yes 08752 - PHQ-9 Billing: Yes Source: Developed by Drs. Ar Peres, Luann Wong, Philip Cosme and colleagues, with an educational efe from [employer]. Thrive Questionnaire Date Thrive assessed: 08/12/24 I am a: Patient What is your living situation today?: I have a steady place to live Within the past 12 months, did the food you bought not last and you didn't have the money to get more?: Never true Within the past 12 months, did you worry whether your food would run out before you got money to buy more?: Never true Do you have trouble paying for medicines?: No Do you have trouble getting transportation to medical appointments?: No Do you have trouble paying your heating and electricity bill?: No Do you have trouble taking care of your child, family member or friend?: No Do you have trouble with day-to-day activities such as bathing, preparing meals, shopping, managing finances, etc.?: No Are you currently unemployed and looking for a job?: No Are you interested in more education?: No Please select the resources that you would like help with: None Currently or been in a relationship where the following occur: I choose not to answer THRIVE Score: 0 AUDIT C Alcohol Use Questionnaire (AUDIT-C) 1. How often do you have a drink containing alcohol?: Never 3. How often do you have six or more drinks on one occasion?: Never Total Score: 0 SHARON-7 AMB Questionnaire SHARON-7 Date SHARON - 7 assessed: 08/12/24 Feeling nervous, anxious, or on edge: 3 = Nearly every day Not being able to stop or control worryin = Several days Worrying too much about different things: 3 = Nearly every day Trouble relaxin = Not at all Being so restless that it is hard to sit still: 0 = Not at all Becoming easily annoyed or irritable: 0 = Not at all Feeling afraid as if something awful might happen: 3 = Nearly every day Total SHARON-7 score (0-4 normal; 5-9 mild; 10-14 moderate; 15-21 severe): 10 Source: Developed by Drs. Ar Peres, Luann Wong, Philip Cosme and colleagues, with an educational efe from [employer]. SHARON-7 Assessment Billing SHARON-7 Assessment Tool: SHARON-7 Assessment 27079 Review of Systems Const Denies chills, Denies fatigue, Denies fever(s), Denies headache(s) and Denies weakness ENT Denies dizziness and Denies headache(s) Card Denies dyspnea Resp Denies cough, Denies dyspnea, Denies wheezing and Denies other (shortness of breath) Musc Denies numbness and Denies tingling Neuro Denies dizziness, Denies headache(s), Denies numbness, Denies tingling and Denies weakness Psych Reports anxiety and Reports depression Endo Denies fatigue Aller/Immun Denies wheezing Physical exam (Primary Care) Vital Signs: Last Vital Signs Pulse 90 08/12/24 12:01 BP 142/76 H 08/12/24 12:01 Pulse Ox 96 08/12/24 12:01 Oxygen Delivery Method Room Air 08/12/24 12:01 BMI result Body Mass Index 36.6 Tobacco/Smoking Status: Tobacco use Status Tobacco use date assessed 08/12/24 08/12/24 12:10 Patient Tobacco Use Status Never used Tobacco 08/12/24 12:10 e-Cigarette/Vaping Use Never Used 08/12/24 12:10 PHQ-9: PHQ-9 Score PHQ-9: Total score 9 08/12/24 12:10 Depression Screening Interpretation: Positive Thrive Assessment: Date of Thrive Assessment Date Thrive assessed 08/12/24 08/12/24 12:10 Currently or been in a relationship where the following occur: I choose not to answer Const General: well developed; No acute distress Nutritional Appearance: well nourished Orientation/consciousness: patient oriented x3 HENMT Head: Yes normocephalic and Yes atraumatic Eyes General: appearance normal, both eyes and all related structures Pupils: Equal, round and reactive pupils present EOM: EOMs intact bilaterally Resp Effort & Inspection: normal respiratory effort Neuro General: patient oriented x3 and gait normal Cranial nerves: Yes Equal, round and reactive pupils present Psych Affect: normal affect Results AMB Hemoglobin A1c AMB Hemoglobin A1c 6.6 % Last Edit by Sarah Michele CMA on 08/12/24 12:17 Results Reviewed Results Reviewed: Laboratory Last Values Hgb A1c (Clinic) 6.6 % (4.0-6.0) H 08/12/24 12:11 Coding Level of Care Code Est Pt Level 3 (30764) Diagnoses Anxiety F41.9 Cognitive changes R41.89 Additional Codes SHARON-7 Assessment Billing - SHARON-7 Assessment Tool: SHARON-7 Assessment 93363 ([id number]) PHQ-9 - 53878 - PHQ-9 Billing: Yes ([id number]) Assessment & Plan Assessment & Plan (1) Anxiety: Code(s): F41.9 - Anxiety disorder, unspecified Category: Medical Plan: Patient?presents?for?follow-up?of?anxiety?and?depression I?had?referred?him?to?the [facility] [place]iatric?consult?team?and?he?has?an?appointment?tomorrow. 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 He?notes?that?1?of?his?concerns?with?starting?any?medications?for?anxiety?and?depression?is?that?he?has?had?those?affect?his?blood?sugar?control?in?the?past. We?discussed?that?if?blood?sugars?are?going?higher?he?may?increase?his?glipizide?ER?5?mg?daily to?10?mg?daily?and?let?me?know?so?I?can?adjust?his?script?so?he?will?not?early. No?medications were?started?today?as?he?has an?upcoming?appointment - Follow-up?with?the?psych?team?tomorrow (2) Cognitive changes: Code(s): R41.89 - Other symptoms and signs involving cognitive functions and awareness Category: Medical Plan: As?mentioned?previously,?is?unclear?if?cognitive?changes?are?secondary?to?significant?psychiatric?issues?such?as?anxiety?depression. He?will?follow-up?with?the?psych?team?tomorrow Orders: Orders Comprehensive [place]. Panel Fast Today Z00.00 - Encounter for general adult medical examination without abnormal findings Complete Blood Count Auto Diff Today Z00.00 - Encounter for general adult medical examination without abnormal findings Prostate Specific Antigen Scr Today Z12.5 - Encounter for screening for malignant neoplasm of prostate TSH reflex Free T4 Today Z00.00 - Encounter for general adult medical examination without abnormal findings Hemoglobin A1c Today R73.01 - Impaired fasting glucose AMB Hemoglobin A1c Today Z13.9 - Encounter for screening, unspecified Lipid Panel Today Z00.00 - Encounter for general adult medical examination without abnormal findings Microalbumin, Random (w Creat) Today I10 - Essential (primary) hypertension UA and rflx microscopic Today Z00.00 - Encounter for general adult medical examination without abnormal findings
--- OUTSIDE RECORDS SUMMARY | 2024-08-12 12:29 | XMS_ITS | Continuity of Care Document ---
Author Organization [facility] [address] [place] [address] Phone [phone] Care Team Providers Care Top Inventory Control Executive Name Role Phone Noah Floyd M.D. Care Team Information Rece iver [phone] Sheldon Rye Care Team Information Receive r [phone] Problems Active Problems Provider Date Type 2 diabetes mellitus Noah Floyd M.D. O nset: 01/04/2022 Essential hypertension Noah Floyd M.D. Ons et: 01/04/2022 Hypercholesterolemia Noah lFoyd M.D. Onset : 01/04/2022 Obesity Noah Floyd M.D. Onset: Retinopathy due to diabetes mellitus Noah caputo M.D. Onset: 02/12/2023 Insulin treated type 2 diabetes mellitus Noah chappell M.D. Onset: 02/12/2023 Hypertriglyceridemia Noah Floyd M.D. Onset : 06/15/2022 Diabetes mellitus Noah Floyd M.D. Onset: 1 08/16/2021 Social History Type Date Description Comments Sex Unknown Tobacco Use Start: Unknown Never Smoked Cigarettes Smoking Status Reviewed: 02/12/23 Never Smoked Cigaret gabriella ETOH Use Never used alcohol Allergies and adverse reactions Description No Known Drug Allergies Medications Active Medications SIG Qnty Indications Order ing Provider Date B-D Pen NDL SHRT [id number](11/06) Mack Use Three Times Daily Before A Meal And 1 Time AT Bedtime 300units Noah Floyd M.D. 06/19/2023 Metformin [id number] Tablets 1 tab by mouth twice a day 180tabs Noah Floyd M.D. 02/12/2023 Kfjqczqinue745tm Tablets 1 by mouth every day Noah Floyd M.D. 06/15/2022 Pwmohvcwr75br Tablets Take Take half t Ablet By Mouth Every Day as Directed 90taadarsh Floyd M.D. 06/15/2022 Ighqrqozgf82wr Tablets Take 1 And 1/2 Tablets By Mouth Every Morning 135taadarsh Beckman M.D. 06/15/2022 Alnbwdlys28ad Tablets 1 tab by mouth every day as directed 90taadarsh Floyd M.D. 01/04/2022 Lantus Idsnymbi977Nkrj/ML Solution Pen-Inject 5 pens 44 units bid 3ml Noah Floyd M.D. 01/04/2022 Kbkfkkw586Mwil/ML Solution 10 u ac 30ml Noah Floyd M.D. 01/04/2022 Amlodipine Mdxxbkmv4bj Tablets Take 1 Tablet By Mouth Once Daily 90taadarsh Beckman M.D. 12/01/2021 Vital Signs Date Vital Result Comment 05/20/2023 4:19pm BP Systolic 144 mmHg BP Diastolic 60 mmHg Heart Rate 94 /min Height 69 inches 5'9 Weight 243.12 lb BMI (Body Mass Index) 35.9 kg/m2 Results Test Acquired Date Facility Test Result H/L Range N ote Laboratory test finding 05/20/2023 Inhouse Glucose Fingerstick 82 Hemoglobin A1c 6.4% Laboratory test finding 02/12/2023 Inhouse Glucose Fingerstick 136 Hemoglobin A1c 7.9% Laboratory test finding 10/10/2022 Inhouse Glucose Fingerstick 105 Hemoglobin A1c 7.1% Laboratory test finding 06/15/2022 Inhouse Glucose Fingerstick 143 Hemoglobin A1c 8.9 Laboratory test finding 01/05/2022 Inhouse Hemoglobin A1c 9.5% Glucose Fingerstick 259 Medical Devices Description No Information Available Encounters Type Date Location Provider Dx Diagnosis Office Visit 05/20/2023 4:15p Main Office Noah Floyd M.D. 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 05/20/2023 E11.9 Type 2 diabetes mellitus without complications Noah Floyd M.D. 05/20/2023 Z79.4 senior living (current) use of i nsulin oNah Floyd M.D. 05/20/2023 E78.1 Hypertriglyceridemia Noah chappell M.D. 05/20/2023 I10 Essential hypertension Noah Floyd M.D. 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
== END 2024-08-12 12:32 | disposition home or self-care (01) ==
PROVIDERS: PCP Family Medicine; Visit Provider Family Medicine
DX: F41.9 Anxiety disorder, unspecified (principal); R41.89 Other symptoms and signs involving cognitive functions and awareness; Z13.9 Encounter for screening, unspecified

== ENCOUNTER → 2024-08-12 11:54 | Outpatient (BNVA) | payer OTHER, MEDICAID, SELFPAY | PROVIDERS: PCP Family Medicine; Visit Provider Family Medicine | DX: F41.9 Anxiety disorder, unspecified (principal); F32.A Depression, unspecified; R41.89 Other symptoms and signs involving cognitive functions and awareness; R73.01 Impaired fasting glucose | CPT/HCPCS: 83036; 96127 ==

== ENCOUNTER 2024-08-13 09:34 | Outpatient (AMB) | payer OTHER, MEDICAID, SELFPAY ==
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
--- OUTSIDE RECORDS SUMMARY | 2024-08-13 10:22 | XMS_ITS | Continuity of Care Document ---
Author Organization [facility] [address] [place] [address] Phone [phone] Care Team Providers Care Coconut Candy Maker Name Role Phone Noah Floyd M.D. Care Team Information Rece iver [phone] Sheldon Rey Care Team Information Receive r [phone] Problems Active Problems Provider Date Type 2 diabetes mellitus Noah Floyd M.D. O nset: 01/04/2022 Essential hypertension Noah Floyd M.D. Ons et: 01/04/2022 Hypercholesterolemia Noah Floyd M.D. Onset : 01/04/2022 Obesity Noah Floyd [...] ing Provider Date B-D Pen NDL SHRT 16BO2RO(11/06) Mack Use Three Times Daily Before A Meal And 1 Time AT Bedtime 300units Noah Floyd M.D. 06/19/2023 Metformin YSO7440ty Tablets 1 tab by mouth twice a day 180tabs Noah Floyd M.D. 02/12/2023 Yixptiisdip180yp Tablets 1 by mouth every day Noah Floyd M.D. 06/15/2022 Bxqotdldp91tv Tablets Take Take half t Ablet By Mouth Every Day as Directed 90taadarsh Floyd M.D. 06/15/2022 Mpgcyxrzoo96se Tablets Take 1 And 1/2 Tablets By Mouth Every Morning 135taadarsh Beckman M.D. 06/15/2022 Pihrqbwpx07qv Tablets 1 tab by mouth every day as directed 90taadarsh Floyd M.D. 01/04/2022 Lantus Zggnzahp676Uogd/ML Solution Pen-Inject 5 pens 44 units bid 3ml Noah Floyd M.D. 01/04/2022 Yveiswf471Ljvs/ML Solution 10 u ac 30ml Noah Floyd M.D. 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 05/20/2023 E11.9 Type 2 diabetes mellitus without complications Noah Floyd M.D. 05/20/2023 Z79.4 detention (current) use of i nsulin Noah Floyd M.D. 05/20/2023 E78.1 Hypertriglyceridemia Noah chappell M.D. 05/20/2023 I10 Essential hypertension Noah Floyd M.D. 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
== END 2024-08-13 10:42 | disposition home or self-care (01) ==
LOC: HO.HOP 09:34
PROVIDERS: PCP Family Medicine; Visit Provider Clinical Nurse Specialist Psychiatric/Mental Health
DX: F43.22 Adjustment disorder with anxiety (principal)
CPT/HCPCS: 90792

== ENCOUNTER → 2024-08-13 09:34 | Outpatient (BNVA) | payer OTHER, MEDICAID, SELFPAY | PROVIDERS: PCP Family Medicine; Visit Provider Clinical Nurse Specialist Psychiatric/Mental Health | DX: F43.22 Adjustment disorder with anxiety (principal) | CPT/HCPCS: 90792 ==

== ENCOUNTER 2024-09-07 09:34 | Outpatient (AMB) | payer OTHER, MEDICAID, SELFPAY ==
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
--- OUTSIDE RECORDS SUMMARY | 2024-09-07 10:24 | XMS_ITS | Continuity of Care Document ---
Author Organization [facility] [address] [place] [address] Phone [phone] Care Team Providers Care Operations Logistics Analyst Name Role Phone Noah Floyd M.D. Care Team Information Rece iver [phone] Sheldon Rey Care Team Information Receive r [phone] Problems Active Problems Provider Date Type 2 [...] ing Provider Date B-D Pen NDL SHRT [id number](11/06) Mack Use Three Times Daily Before A Meal And 1 Time AT Bedtime 300units Noah Floyd M.D. 06/19/2023 Metformin [id number] Tablets 1 tab by mouth twice a day 180tabs Noah Floyd M.D. 02/12/2023 [id number] Tablets 1 by mouth every day Noah Floyd M.D. 06/15/2022 Phnuipffw74xe Tablets Take Take half t Ablet By Mouth Every Day as Directed 90taadarsh Floyd M.D. 06/15/2022 Rsdzxhfxsv55og Tablets Take 1 And 1/2 Tablets By Mouth Every Morning 135taadarsh Beckman M.D. 06/15/2022 Iyieqpyez38hc Tablets 1 tab by mouth every day as directed 90taadarsh Floyd M.D. 01/04/2022 Lantus Vnsadzvb091Diei/ML Solution Pen-Inject 5 pens 44 units bid 3ml Noah Floyd M.D. 01/04/2022 Ilfswjf926Hcco/ML Solution 10 u ac 30ml Noah Floyd M.D. 01/04/2022 Amlodipine Vnjkigwx7nz Tablets Take 1 Tablet By Mouth Once Daily 90taadarsh Beckman M.D. 12/01/2021 Vital Signs Date Vital Result Comment 08/21/2024 1:10pm BP Systolic 128 mmHg BP Diastolic 74 mmHg Heart Rate 73 /min Height 69 inches 5'9 Weight 243.12 lb BMI (Body Mass Index) 35.9 kg/m2 Results Test Acquired Date Facility Test Result H/L Range N ote Glucose Fingerstick 08/21/2024 Inhouse Glucose Fingerstick 146 Hemoglobin A1c 08/21/2024 Inhouse Hemoglobin A1c 6.7% Glucose Fingerstick 05/20/2023 Inhouse Glucose Fingerstick 82 Hemoglobin A1c 05/20/2023 Inhouse Hemoglobin A1c 6.4% Glucose Fingerstick 02/12/2023 Inhouse Glucose Fingerstick 136 Hemoglobin A1c 02/12/2023 Inhouse Hemoglobin A1c 7.9% Glucose Fingerstick 10/10/2022 Inhouse Glucose Fingerstick 105 Hemoglobin A1c 10/10/2022 Inhouse Hemoglobin A1c 7.1% Glucose Fingerstick 06/15/2022 Inhouse Glucose Fingerstick 143 Hemoglobin A1c 06/15/2022 Inhouse Hemoglobin A1c 8.9 Hemoglobin A1c 01/05/2022 Inhouse Hemoglobin A1c 9.5% Glucose Fingerstick 01/05/2022 Inhouse Glucose Fingerstick 259 Medical Devices Description No Information Available Encounters Type Date Location Provider Dx Diagnosis Office Visit 08/21/2024 1:00p Main Office LAWRENCE Escobar E78.1 Pure hyperglyceridemia I10 Essential (primary) hypertension Z79.4 [facility] (current) use of insulin E11.3599 Type 2 diab with pro lif diab rtnop without mclr edema, unsp Assessments Date Code Description Provider 08/21/2024 E78.1 Hypertriglyceridemia LAWRENCE Escobar 08/21/2024 I10 Essential hypertension LAWRENCE Harvey 08/21/2024 Z79.4 [facility] (current) use of i nsulin LAWRENCE Escobar 08/21/2024 E11.3599 Type 2 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 edema, unspecified eye LAWRENCE Escobar Plan of Treatment Future Appointment(s):* 12/21/2024 8:00 am - LAWRENCE Escobar at Main Office 08/21/2024 - LAWRENCE Escobar* E78.1 Hypertriglyceridemia * I10 Essential hypertension * 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
== END 2024-09-07 10:50 | disposition home or self-care (01) ==
LOC: HO.HOP 09:34
PROVIDERS: PCP Family Medicine; Visit Provider Clinical Nurse Specialist Psychiatric/Mental Health
DX: F32.9 Major depressive disorder, single episode, unspecified (principal); F41.9 Anxiety disorder, unspecified
CPT/HCPCS: 99214

== ENCOUNTER → 2024-09-07 09:34 | Outpatient (BNVA) | payer OTHER, MEDICAID, SELFPAY | PROVIDERS: PCP Family Medicine; Visit Provider Clinical Nurse Specialist Psychiatric/Mental Health ==

== ENCOUNTER 2024-09-21 09:17 | Outpatient (AMB) | payer OTHER, MEDICAID, SELFPAY ==
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
== END 2024-09-21 10:05 | disposition home or self-care (01) ==
LOC: HO.HOP 09:17
PROVIDERS: PCP Family Medicine; Visit Provider Clinical Nurse Specialist Psychiatric/Mental Health
DX: F32.9 Major depressive disorder, single episode, unspecified (principal)
CPT/HCPCS: 99214

== ENCOUNTER 2024-09-25 09:50 | Outpatient (AMB) | payer OTHER, MEDICAID, SELFPAY ==
[2024-09-25 09:53] VITALS: BP 136/70; PULSE 88; O2SAT 99; BMI 38.0
--- NOTE | 2024-09-25 09:53 | MHC.OFFVIS ---
Vital Signs 09/25/24 09:53 Height 5 ft 8 in Weight 250 lb BMI 38.0 BP 136/70 Blood Pressure Location Lt brachial Position Sitting Pulse 88 Pulse Source Pulse Oximeter Pulse Oximetry (%) 99 Oxygen Delivery Method Room Air Intake Visit Reasons: COLO SCREENING/NEW PATIENT Intake Note: NEW PATIENT for initial colo screening. Chief Complaint; Pt denies any GI concerns or sx at this time. No FMHx reported. 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 male with past medical history of diabetes, depression, cognitive changes, anxiety, hyperlipidemia, psoriasis, hypertension is here today for pre colonoscopy screening.? Patient was sent to us by his PCP.? This is his first colonoscopy screening.? Patient denies any gastrointestinal symptoms in the past or at present.? Denies any personal or family history of gastrointestinal disease, colon polyps, or CRC.? Denies history of difficulty with sedation or anesthesia in the past.? Negative for history of sleep apnea.? Denies any history of cardiac, renal, pulmonary, or hepatic disease.?? No history of infectious? diseases like hepatitis A, B, C, HIV or tuberculosis.? Patient is not on any anticoagulation [facility] Medical History Adjustment disorder with anxiety Diabetes Surgical History H/O eye surgery Social History Housing: House Patient Tobacco Use Status: Never used Tobacco e-Cigarette/Vaping Use: Never Used Second Hand Smoke Exposure: No service: No Current occupational status: employed Current occupational exposures/hazards: No Cognitive needs: No Hearing needs: No Vision needs: No Review of Systems Const Denies weight gain and Denies weight loss ENT Reports no additional complaints, Denies dysphagia and Denies odynophagia Card Reports no additional complaints Resp Reports no additional complaints GI Denies abdominal pain, Denies belching, Denies melena, Denies bloating, Denies change in bowel habits, Denies dysphagia, Denies excessive flatus, Denies dyspepsia, Denies heartburn, Denies diarrhea, Denies loose stools, Denies nausea, Denies odynophagia and Denies vomiting Reports no additional complaints Musc Reports no additional complaints Neuro Reports no additional complaints Psych Reports no additional complaints Endo Reports no additional complaints Physical Exam Vital Signs: Last Vital Signs Pulse 88 09/25/24 09:53 BP 136/70 09/25/24 09:53 Pulse Ox 99 09/25/24 09:53 Oxygen Delivery Method Room Air 09/25/24 09:53 BMI result Body Mass Index 38.0 Const General: healthy appearing, no acute distress and well developed Nutritional Appearance: well nourished Orientation/consciousness: patient oriented x3 Resp Effort & Inspection: normal respiratory effort, able to speak in complete sentences, no tracheal deviation and symmetric chest movement Auscultation: clear to auscultation bilaterally Cardio Rate: regular rate GI Inspection: Yes normal to inspection and No distended Palpation (GI): Soft to palpation, not firm, nontender and No hepatosplenomegaly present Auscultation: normal bowel sounds General: Yes no CVA tenderness Back/Spine/Pelvis Back: no CVA tenderness Skin General skin exam: elasticity normal, turgor normal and dry skin Neuro General: patient oriented x3 Psych Appearance: grossly normal Mental Status: mental status grossly normal Assessment & Plan Assessment & Plan (1) Screening for colon cancer: Code(s): Z12.11 - Encounter for screening for malignant neoplasm of colon Category: Medical Plan Patient denies any GI, cardiac or respiratory symptoms.? Denies any issues with anesthesia in the past.? Denies any history of sleep apnea.? No history infectious diseases in the past or present.? Not on any anticoagulation therapy.? No family or personal history of colon cancer or polyps.? Patient is on Lantus, Jardiance and glipizide. Patient will take half of the Lantus dose 2 nights and 1 night before the procedure. He will hold Jardiance and glipizide day before and day of the procedure until he returns home. Patient denies melena, hematochezia, unintentional weight loss or ribbon like stools.? Discussed at length the pre-procedure,? prep, diet & medications as well as what to expect prior, during and after the procedure.?? Stressed the importance of good bowel prep.? Recommended the use of Vaseline or Calmoseptine OTC & baby wipes with bowel movements to promote comfort.? ?Patient verbalizes understanding and agrees to plan of care.? He was given the opportunity to ask questions and all questions answered.? We will see him after the procedure.? Medications: New bisacodyl (Dulcolax (bisacodyl)) take 4 tabs at noon the day before your colonoscopy 20 mg (4 x 5 mg) PO ONCE 1 day 4 tabs 0RF Z12.11 - Encounter for screening for malignant neoplasm of colon polyethylene glycol 3350 (Miralax) As directed by gastroenterology department at [facility] 238 grams PO ONCE 238 grams 0RF Z12.11 - Encounter for screening for malignant neoplasm of colon Coding Level of Care Code New Pt Level 3 (56790) Diagnoses Screening for colon cancer Z12.11 Time Spent (min) 40 Comment 30 minutes spent with patient and additional 10 minutes spent reviewing his records
--- OUTSIDE RECORDS SUMMARY | 2024-09-25 11:02 | XMS_ITS | Continuity of Care Document ---
Author Organization [facility] [address] [place] [address] Phone [phone] Care Team Providers Care Daycare Assistant Name Role Phone Noah Floyd M.D. Care Team Information Rece iver [phone] Sheldon Rey Care Team Information Receive r [phone] Problems Active Problems Provider Date Type 2 [...] ing Provider Date B-D Pen NDL SHRT [id number](11/06) Makc Use Three Times Daily Before A Meal And 1 Time AT Bedtime 300units Noah Floyd M.D. 06/19/2023 Metformin [id number] Tablets 1 tab by mouth twice a day 180tabs Noah Floyd M.D. 02/12/2023 Idulozfggpf835ik Tablets 1 by mouth every day Noah Floyd M.D. 06/15/2022 Mvvncmovx01uf Tablets Take Take half t Ablet By Mouth Every Day as Directed 90taadarsh Floyd M.D. 06/15/2022 Eddamhpqwt20sl Tablets Take 1 And 1/2 Tablets By Mouth Every Morning 135taadarsh Beckman M.D. 06/15/2022 Epurhdedv01us Tablets 1 tab by mouth every day as directed 90taadarsh Floyd M.D. 01/04/2022 Lantus Agnsugwf760Kzfq/ML Solution Pen-Inject 5 pens 44 units bid 3ml Noah Floyd M.D. 01/04/2022 Vhmvshl073Jorn/ML Solution 10 u ac 30ml Noah Floyd M.D. 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 edema, unspecified eye LAWRENCE Escobar Plan of Treatment Future Appointment(s):* 12/21/2024 8:00 am - LAWRENCE Escobar at Main Office 08/21/2024 - LAWRENCE Escobar* E78.1 Hypertriglyceridemia * I10 Essential hypertension * 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
== END 2024-09-25 10:26 | disposition home or self-care (01) ==
LOC: HO.HGI 09:51
PROVIDERS: PCP Family Medicine; Visit Provider Nurse Practitioner Family
DX: Z01.818 Encounter for other preprocedural examination (principal); Z12.11 Encounter for screening for malignant neoplasm of colon
CPT/HCPCS: 99202

== ENCOUNTER 2024-10-19 09:16 | Outpatient (AMB) | payer OTHER, MEDICAID, SELFPAY ==
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
--- OUTSIDE RECORDS SUMMARY | 2024-10-19 10:09 | XMS_ITS | Continuity of Care Document ---
Author Organization [facility] [address] [place] [address] Phone [phone] Care Team Providers Care Loss Prevention Agent Name Role Phone Noah Floyd M.D. Care Team Information Rece iver [phone] Sheldon Rey Care Team Information Receive r [phone] Problems Active Problems Provider Date Type 2 [...] ing Provider Date B-D Pen NDL SHRT [id number](11/06) Mack Use Three Times Daily Before A Meal And 1 Time AT Bedtime 300units Noah Floyd M.D. 06/19/2023 Metformin [id number] Tablets 1 tab by mouth twice a day 180tabs Noah Floyd M.D. 02/12/2023 Mncbiscipbu742bq Tablets 1 by mouth every day Noah Floyd M.D. 06/15/2022 Ewlvfaicr47ru Tablets Take Take half t Ablet By Mouth Every Day as Directed 90taadarsh Floyd M.D. 06/15/2022 Qwnsaholiw98ku Tablets Take 1 And 1/2 Tablets By Mouth Every Morning 135taadarsh Beckman M.D. 06/15/2022 Vzjshritl11am Tablets 1 tab by mouth every day as directed 90taadarsh Floyd M.D. 01/04/2022 Lantus Ssbhoxyv787Uwnr/ML Solution Pen-Inject 5 pens 44 units bid 3ml Noah Floyd M.D. 01/04/2022 Yrjxtqf217Jdro/ML Solution 10 u ac 30ml Noah Floyd M.D. 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 edema, unspecified eye LAWRENCE Escobar Plan of Treatment Future Appointment(s):* 12/21/2024 8:00 am - LAWRENCE Escobar at Main Office 08/21/2024 - LAWRENCE Escobar* E78.1 Hypertriglyceridemia * I10 Essential hypertension * 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
== END 2024-10-19 09:49 | disposition home or self-care (01) ==
LOC: HO.HOP 09:16
PROVIDERS: PCP Family Medicine; Visit Provider Clinical Nurse Specialist Psychiatric/Mental Health
DX: F32.9 Major depressive disorder, single episode, unspecified (principal); F41.9 Anxiety disorder, unspecified
CPT/HCPCS: 99214

== ENCOUNTER 2024-11-17 08:31 | Outpatient (AMB) | payer OTHER, MEDICAID, SELFPAY ==
--- NOTE | 2024-11-17 08:37 | A.OFFPC_ITS ---
Vital Signs 11/17/24 08:43 Height 5 ft 8 in Weight 243 lb 6 oz BMI 37.0 BP 130/80 Blood Pressure Location Lt brachial Position Sitting Respiration 16 Pulse 82 Pulse Source Pulse Oximeter Temp 98.2 F Temp Source Oral Pulse Oximetry (%) 96 Oxygen Delivery Method Room Air Intake Visit Reasons: f/u anxiety/depression - see comments Intake Note: patient is scheduled for anxiety and depression Supply Planner Required: No Allergies No Known Allergies Allergy (Verified 11/17/24 08:38) Medication List - Last Reconciled 11/17/24 by Joseluis Ohara MD amlodipine 5 mg PO DAILY 90 days atorvastatin 10 mg PO BEDTIME 30 days betamethasone valerate 0.1% 1 appl topical BID PRN 30 days bisacodyl (Dulcolax (bisacodyl)) 20 mg (4 x 5 mg) PO ONCE 1 day empagliflozin (Jardiance) 25 mg PO DAILY 90 days fenofibrate 160 mg PO DAILY 30 days glipizide ER 5 mg PO DAILY 30 days insulin glargine (Lantus Solostar U-100 Insulin) 50 units (0.5 mL) subcut DAILY 30 days lisinopril 15 mg PO QAM metformin 1,000 mg PO BID 90 days mirtazapine 15 mg PO BEDTIME mupirocin 2% 1 appl topical BID 10 days pen needle, diabetic (BD Ultra-Fine Short Pen Needle) As directed polyethylene glycol 3350 (Miralax) 238 grams PO ONCE Tobacco use date assessed: 08/12/24 Dental Screening Dental Screen Date: 08/12/24 HPI f/u anxiety/depression - see comments HPI Details 53 y/o male presents to f/u anxiety/depr ession as well as labs. PHQ-9 12, SHARON-7 7 today. Has been following up with Joseline Mandel Psychiatry. Was prescribed mirtazapine but has not taken this yet. Reports ongoing depression/anxiety. Reports ongoing stressors with family. Reports difficulty concentrating. Blood pressure today 130/80, 82p. He is on lisinopril 15mg, amlodipine 5mg daily. He is on Jardiance 25mg, glipizide 5mg, Lantus 50 units, metformin 1000mg b.i.d. for diabetes. A1c today 11/17/24 is 8.3%. [facility] Medical History Adjustment disorder with anxiety Diabetes Surgical History H/O eye surgery Social History Housing: House Patient Tobacco Use Status: Never used Tobacco e-Cigarette/Vaping Use: Never Used Second Hand Smoke Exposure: No service: No Current occupational status: employed Current occupational exposures/hazards: No Cognitive needs: No Hearing needs: No Vision needs: No Questionnaire PHQ-9 Over the last 2 weeks, how often have you been bothered by any of the following problems? 1. Little interest or pleasure in doing things: not at all 2. Feeling down, depressed, or hopeless: nearly every day 3. Trouble falling or staying asleep, or sleeping too much: nearly every day 4. Feeling tired or having little energy: not at all 5. Poor appetite or overeating: not at all 6. Feeling bad about yourself - or that you are a failure or have let yourself or your family down: nearly every day 7. Trouble concentrating on things, such as reading the newspaper or watching television: not at all 8. Moving or speaking so slowly that other people could have noticed. Or the opposite - being so fidgety or restless that you have been moving around a lot more than usual: not at all 9. Thoughts that you would be better off or of hurting yourself in some way: nearly every day Total score: 12 Depression Screening Interpretation: Positive Depression Screening Done: Yes 05427 - PHQ-9 Billing: Yes Source: Developed by Drs. Ar Peres, Luann Wong, Philip Cosme and colleagues, with an educational efe from [employer]. Thrive Questionnaire Date Thrive assessed: 08/12/24 I am a: Patient What is your living situation today?: I have a steady place to live Within the past 12 months, did the food you bought not last and you didn't have the money to get more?: Sometimes True Within the past 12 months, did you worry whether your food would run out before you got money to buy more?: Sometimes True Do you have trouble paying for medicines?: No Do you have trouble getting transportation to medical appointments?: No Do you have trouble paying your heating and electricity bill?: No Do you have trouble taking care of your child, family member or friend?: No Do you have trouble with day-to-day activities such as bathing, preparing meals, shopping, managing finances, etc.?: No Are you currently unemployed and looking for a job?: No Are you interested in more education?: No Please select the resources that you would like help with: None Currently or been in a relationship where the following occur: I choose not to answer THRIVE Score: 2 AUDIT C Alcohol Use Questionnaire (AUDIT-C) 2. How many drinks containing alcohol do you have on a typical day when you are drinking?: 1 or 2 3. How often do you have six or more drinks on one occasion?: Never Total Score: 0 SHARON-7 AMB Questionnaire SHARON-7 Date SHARON - 7 assessed: 11/17/24 Feeling nervous, anxious, or on edge: 1 = Several days Not being able to stop or control worryin = Not at all Worrying too much about different things: 0 = Not at all Trouble relaxin = Not at all Being so restless that it is hard to sit still: 3 = Nearly every day Becoming easily annoyed or irritable: 0 = Not at all Feeling afraid as if something awful might happen: 3 = Nearly every day Total SHARON-7 score (0-4 normal; 5-9 mild; 10-14 moderate; 15-21 severe): 7 Source: Developed by Drs. Ar Peres, Luann Wong, Philip Cosme and colleagues, with an educational efe from [employer]. SHARON-7 Assessment Billing SHARON-7 Assessment Tool: SHARON-7 Assessment 37425 Review of Systems Const Denies chills, Denies fatigue, Denies fever(s), Denies headache(s) and Denies weakness ENT Denies dizziness and Denies headache(s) Card Denies chest pain, Denies lightheadedness, Denies dyspnea and Denies other (Palpitations) Resp Denies cough, Denies dyspnea, Denies wheezing and Denies other ( shortness of breath) Musc Denies numbness and Denies tingling Neuro Denies dizziness, Denies headache(s), Denies numbness, Denies tingling, Denies paresthesias and Denies weakness Psych Reports anxiety and Reports depression Endo Denies fatigue Aller/Immun Denies wheezing Physical exam (Primary Care) Vital Signs: Last Vital Signs Temp 98.2 F 11/17/24 08:43 Pulse 82 11/17/24 08:43 Resp 16 11/17/24 08:43 BP 130/80 11/17/24 08:43 Pulse Ox 96 11/17/24 08:43 Oxygen Delivery Method Room Air 11/17/24 08:43 BMI result Body Mass Index 37.0 Tobacco/Smoking Status: Tobacco use Status Tobacco use date assessed 08/12/24 11/17/24 08:45 Patient Tobacco Use Status Never used Tobacco 11/17/24 08:45 e-Cigarette/Vaping Use Never Used 11/17/24 08:45 PHQ-9: PHQ-9 Score PHQ-9: Total score 12 11/17/24 08:52 Depression Screening Interpretation: Positive Thrive Assessment: Date of Thrive Assessment Date Thrive assessed 08/12/24 11/17/24 08:45 Currently or been in a relationship where the following occur: I choose not to answer Const General: no acute distress and well developed Nutritional Appearance: well nourished and obese Orientation/consciousness: patient oriented x3 [facility]: Yes normocephalic and Yes atraumatic Eyes General: appearance normal, both eyes and all related structures Pupils: Equal, round and reactive pupils present EOM: EOMs intact bilaterally Resp Effort & Inspection: normal respiratory effort Auscultation: clear to auscultation bilaterally Cardio Rate: regular rate Rhythm: regular rhythm Heart sounds: S1 normal heart sound present, S2 normal heart sound present, no gallops, no murmurs and no rubs Neuro General: patient oriented x3 and gait normal Cranial nerves: Yes Equal, round and reactive pupils present Psych Affect: normal affect Coding Level of Care Code Est Pt Level 4 (23435) Diagnoses Major depressive disorder, single episode with anxious distress F32.9 Hypertension I10 Diabetes E11.9 Difficulty concentrating R41.840 Additional Codes SHARON-7 Assessment Billing - SHARON-7 Assessment Tool: SHARON-7 Assessment 58237 ([id number]) PHQ-9 - 36544 - PHQ-9 Billing: Yes ([id number]) Assessment & Plan Assessment & Plan (1) Major depressive disorder, single episode with anxious distress: Code(s): F32.9 - Major depressive disorder, single episode, unspecified Category: Medical Plan: Patient?had?se en?the?[facility]?outpatient?psychiatric?consult?team?and?was?prescribed?mirtazapine.?? He?has?not?a?medication. He?wants?to?be?evaluated?or?difficulty?concentrating?and?wants?consideration?ADH D.??I?will?refer?him?to?learning?solutions Follow-up?with outpatient?psychiatric?consult?team?as?recommended (2) Hypertension: Code(s): I10 - Essential (primary) hypertension Category: Medical Plan: Blood?pressure?is?controlled.??Goal?is?less?than?140/90 Continue?current?medication (3) Diabetes: Code(s): E11.9 - Type 2 diabetes mellitus without complications Category: Medical Plan: A1c?no?longer?controlled.??He?seems?to?be?off?of?medications. Encouraged?him?to?work?and?improved consistency?with?his?medications There?is?some?difficulty?with?getting?his?Lantus?in?we?will?try?to?get?his?at?a? different?pharmacy. (4) Difficulty concentrating: Code(s): R41.840 - Attention and concentration deficit Category: Medical Plan: As?above,?referred?to?learning?solutions Orders: Referrals Neuropsychiatry Referral R41.840 - Attention and concentration deficit, R41.89 - Other symptoms and signs involving cognitive functions and awareness Medications: Refilled empagliflozin (Jardiance) 25 mg PO DAILY 90 days 90 tabs 3RF insulin glargine (Lantus Solostar U-100 Insulin) 50 units (0.5 mL) subcut DAILY 30 days 15 mL 4RF E11.9 - Type 2 diabetes mellitus without complications metformin 1,000 mg PO BID 90 days 180 tabs 3RF glipizide ER 5 mg PO DAILY 30 days 30 tabs 2RF
[2024-11-17 08:43] VITALS: BP 130/80; PULSE 82; RESP 16; TEMP 36.8; O2SAT 96; BMI 37.0
--- OUTSIDE RECORDS SUMMARY | 2024-11-17 08:50 | XMS_ITS | Continuity of Care Document ---
Author Organization [facility] [address] [place] [address] Phone [phone] Care Team Providers Care Air Traffic Control Manager Name Role Phone Noah Floyd M.D. Care Team Information Rece iver [phone] Sheldon Rey Care Team Information Receive r [phone] Problems Active Problems Provider Date Type 2 [...] ing Provider Date B-D Pen NDL SHRT [id number](11/06) Mack Use Three Times Daily Before A Meal And 1 Time AT Bedtime 300units Noah Floyd M.D. 06/19/2023 Metformin [id number] Tablets 1 tab by mouth twice a day 180tabs Noah Floyd M.D. 02/12/2023 Cmghijvgymg656tv Tablets 1 by mouth every day Noah Floyd M.D. 06/15/2022 Mxlsoktxh28qn Tablets Take Take half t Ablet By Mouth Every Day as Directed 90taadarsh Floyd M.D. 06/15/2022 Sklndxzlho02cs Tablets Take 1 And 1/2 Tablets By Mouth Every Morning 135taadarsh Beckman M.D. 06/15/2022 Bmvcjddbu01id Tablets 1 tab by mouth every day as directed 90taadarsh Floyd M.D. 01/04/2022 Lantus Mifxwits542Kcbm/ML Solution Pen-Inject 5 pens 44 units bid 3ml Noah Floyd M.D. 01/04/2022 Hnocdld066Fmvj/ML Solution 10 u ac 30ml Noah Floyd M.D. 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 edema, unspecified eye LAWRENCE Escobar Plan of Treatment Future Appointment(s):* 12/21/2024 8:00 am - LAWRENCE Escobar at Main Office 08/21/2024 - LAWRENCE Escobar* E78.1 Hypertriglyceridemia * I10 Essential hypertension * Z79.4 custodial (current) use of insulin * E11.3599 Type 2 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
== END 2024-11-17 09:13 | disposition home or self-care (01) ==
LOC: HO.HMCFM 08:31
PROVIDERS: PCP Family Medicine; Visit Provider Family Medicine
DX: F32.9 Major depressive disorder, single episode, unspecified (principal); I10 Essential (primary) hypertension; E11.9 Type 2 diabetes mellitus without complications; R41.840 Attention and concentration deficit

== ENCOUNTER → 2024-11-17 08:31 | Outpatient (BNVA) | payer OTHER, MEDICAID, SELFPAY | PROVIDERS: PCP Family Medicine; Visit Provider Family Medicine | DX: E11.9 Type 2 diabetes mellitus without complications (principal); F41.9 Anxiety disorder, unspecified; F32.A Depression, unspecified; F32.9 Major depressive disorder, single episode, unspecified; I10 Essential (primary) hypertension; R41.840 Attention and concentration deficit; R41.89 Other symptoms and signs involving cognitive functions and awareness; Z79.899 Other long term (current) drug therapy | CPT/HCPCS: 83036; 96127 ==

== ENCOUNTER 2024-11-17 09:21 | Outpatient (REF) | payer OTHER, MEDICAID, SELFPAY ==
[2024-11-17 11:05] LABS: MANUAL DIFF FLAG NO
[2024-11-17 11:14] LABS: Basophils Percent Auto 0.6 % (0-2); Eosinophils Absolute Auto 0.1 X10*3/uL (0.0-0.4); Hematocrit 39.1 % (42.0-52.0); Hemoglobin 13.4 g/dl (14.0-18.0); Imm Gran Abs Auto 0.03 X10*3/uL (0.00-0.03); Imm Gran Pct Auto 0.4 % (0.0-0.4); Lymphocytes Absolute Auto 1.2 X10*3/uL (1.2-4.9); Lymphocytes Percent Auto 17.7 % (20-40); Mean Corpuscular HGB Conc 34.3 g/dl (31.0-36.0); Mean Corpuscular Hemoglobin 29.1 pg (27.0-33.0); Mean Platelet Volume 11.2 fL (9.4-12.4); Monocytes Absolute Auto 0.5 X10*3/uL (0.1-1.2); Monocytes Percent Auto 6.9 % (2-11); Neutrophils Absolute Auto 4.9 x10*3/uL (2.0-8.3); Neutrophils Percent Auto 73.4 % (45-73); Platelet Count 201 X10*3/uL (160-400); Red Cell Distribution Width 12.9 % (11.0-16.0); White Blood Count 6.7 X10*3/uL (4.8-10.8)
[2024-11-17 11:18] LABS: Appearance Urine Turbid; Color Urine Yellow; Glucose Urine UA 500 mg/dL (Negative); Leukocyte Esterase Urine Negative (Negative); Nitrite Urine Negative (Negative); PH 5.5 (5.0-9.0); Specific Gravity - Urine 1.025 (1.005-1.025); Urine Blood Negative (Negative); Urine Ketones Trace mg/dL (Negative); Urine Protein Negative (Neg-Trace)
[2024-11-17 11:26] LABS: Estimated Average Glucose 200 mg/dL; Hemoglobin A1c % 8.6 % (<6.0)
[2024-11-17 11:46] LABS: Prostate Specific Antigen Scr 5.45 ng/mL (<0.05-4.0)
[2024-11-17 11:51] LABS: Alanine Aminotransferase 24 U/L (0-40); Albumin Level 4.8 g/dL (3.5-5.0); Alkaline Phosphatase 67 U/L (39-117); Anion Gap 12 (12-20); Aspartate Amino Transferase 26 U/L (5-37); Bilirubin Total 0.5 mg/dL (0.0-1.0); Blood Urea Nitrogen 10 mg/dL (9-16); Calcium 9.6 mg/dL (8.4-10.2); Carbon Dioxide 30 mmol/L (22-29); Chloride 98 mmol/L (96-108); Cholesterol 188 mg/dL (<200); Estimated Glomerular Filt Rate > 60; Glucose Fasting 269 mg/dL (60-99); HDL Cholesterol 31 mg/dL (>40); LDL Cholesterol Calculated 106 mg/dL (<100); Potassium 4.7 mmol/L (3.3-5.1); Sodium 135 mmol/L (135-145); TSH reflex Free T4 1.32 uIU/mL (0.32-4.0); Total Protein 7.9 g/dL (6.5-8.0); Triglycerides 256 mg/dL (<150)
[2024-11-17 11:59] LABS: Creatinine Urine 168.87 mg/dL
== END 2024-11-17 09:22 | disposition home or self-care (01) ==
LOC: HO.WFDLDS 09:21
PROVIDERS: Visit Provider Family Medicine
DX: Z00.00 Encounter for general adult medical examination without abnormal findings (principal); I10 Essential (primary) hypertension; R73.01 Impaired fasting glucose; Z12.5 Encounter for screening for malignant neoplasm of prostate
CPT/HCPCS: 36415; 80053; 80061; 81003; 82043; 82570; 83036; 84153; 84443; 85025

== ENCOUNTER 2024-12-08 09:53 | Outpatient (AMB) | payer OTHER, MEDICAID, SELFPAY ==
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
--- OUTSIDE RECORDS SUMMARY | 2024-12-08 11:05 | XMS_ITS | Continuity of Care Document ---
Author Organization [facility] [address] [facility] [address] [place] [address] Phone [phone] Care Team Providers Care Thermostat Repairer Name Role Phone Noah Floyd M.D. Care Team Information Rece iver [phone] Sheldon Rey Care Team Information Receive r [phone] Problems Active Problems Provider Date Type 2 [...] Social History Type Date Description Comments Sex Male Sex Unknown Tobacco Use Start: Unknown Never Smoked Cigarettes Smoking Status Reviewed: 02/12/23 Never Smoked Cigaret gabriella ETOH Use Never used alcohol Allergies and adverse reactions Description No Known Drug Allergies Medications Active Medications SIG Qnty Indications Order ing Provider Date B-D Pen NDL SHRT [id number](11/06) Makc Use Three Times Daily Before A Meal And 1 Time AT Bedtime 300units Noah Floyd M.D. 06/19/2023 Metformin [id number] Tablets 1 tab by mouth twice a day 180tabs Noah Floyd M.D. 02/12/2023 Wqiygcuezri644dz Tablets 1 by mouth every day Noah Floyd M.D. 06/15/2022 Jgauqttoh08pu Tablets Take Take half t Ablet By Mouth Every Day as Directed 90taadarsh Floyd M.D. 06/15/2022 Vfozxnqnvn79kx Tablets Take 1 And 1/2 Tablets By Mouth Every Morning 135tabs Shara Beckman M.D. 06/15/2022 Qxphqeref89ox Tablets 1 tab by mouth every day as directed 90taadarsh Floyd M.D. 01/04/2022 Lantus Vadvdxtk167Tpku/ML Solution Pen-Inject 5 pens 44 units bid 3ml Noah Floyd M.D. 01/04/2022 Neiwnuy038Gujf/ML Solution 10 u ac 30ml Noah Floyd M.D. 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 edema, unspecified eye LAWRENCE Escobar Plan of Treatment Future Appointment(s):* 12/21/2024 8:00 am - LAWRENCE Escobar at Main Office 08/21/2024 - LAWRENCE Escobar* E78.1 Hypertriglyceridemia * I10 Essential hypertension * Z79.4 intermediate (current) use of insulin * E11.3599 Type 2 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
== END 2024-12-08 09:55 | disposition home or self-care (01) ==
LOC: HO.HOP 09:53
PROVIDERS: PCP Family Medicine; Visit Provider Clinical Nurse Specialist Psychiatric/Mental Health
DX: F43.23 Adjustment disorder with mixed anxiety and depressed mood (principal)
CPT/HCPCS: 99214

== ENCOUNTER → 2024-12-14 11:17 | Outpatient (BNVA) | payer OTHER, MEDICAID, SELFPAY | PROVIDERS: PCP Family Medicine; Visit Provider Family Medicine | DX: Z13.89 Encounter for screening for other disorder (principal) ==

== ENCOUNTER 2025-01-18 09:14 | Outpatient (AMB) | payer OTHER, MEDICAID, SELFPAY ==
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
--- OUTSIDE RECORDS SUMMARY | 2025-01-18 09:56 | XMS_ITS | Patient Health Record ---
Author Organization [facility] Address [address] [place] [address] Care Team Providers Care Kindergartners Helper Name Role Phone Nilson Huston MD Primary Care Provider Nicolas Boswell Unavailable [phone] Reason For Referral No Information Medications Medication SIG (Take, Route, Frequency, Duration) Notes Start Date End Date Status Extra-Depth Diabetic Shoes w ith 3 Pair Custom heat-molded multi-density innersoles . 1pair shoes/3sets inserts . .; Duration: 1 year Active Simvastatin Active Metoprolol & Diet Manage Pro d 25 mg Active Metformin & Diet Manage Prod 1000 mg Active Lantus SoloStar 100 units twice a day Active Janumet 50 mg Active hydroCHLOROthiazide 25 mg Active Problems Problem Type SNOMED Code ICD Code Onset Dates Problem Status W/U Status Risk Notes Problem Type II diabetes mellitus without complication (755308181) Diabetic - NIDDM (250.00) Active confirmed Problem Hammer toe (754538946) Hammer toe (735.4) Active confirmed Problem Ingrowing nail (423831680) Ingrowing Nail (703.0) Active confirmed Problem Onychomycosis (275162878) Onychomycosis (110.1) Active confirmed Problem Pain in limb (54494546) Pain in Limb (729.5) Active confirmed Plan Of Treatment Pending Test Test Name Order Date [id number] NAIL, 6 OR MORE 03/14/2011 [id number] NAIL, 6 OR MORE 05/30/2011 [id number] NAIL, 6 OR MORE 08/20/2011 [id number] NAIL, 6 OR MORE 10/29/2011 [id number] NAIL, 6 OR MORE 01/24/2012 [id number] NAIL, 6 OR MORE 04/24/2012 [id number] NAIL, 6 OR MORE 07/31/2012 [id number] NAIL, 6 OR MORE 11/03/2012 [id number] NAIL, 6 OR MORE 01/28/2013 [id number] NAIL, 6 OR MORE 04/30/2013 61512-Saawqtke Plate 07/31/2012 Insurance Providers Payer Name Payer Address Payer Phone Subscriber Number Group Number Insured Name Patient Relationship to Insured Coverage Start Date Coverage End Date [facility] [address] [facility] [place] [address] [id number] Swapnil Denton i Self - patient is the insured Medical (General) History Medical History History ICD Code Cholesterol diabetic chicken pox hypertension
--- OUTSIDE RECORDS SUMMARY | 2025-01-18 09:56 | XMS_ITS | Continuity of Care Document ---
Author Organization [facility] [address] [facility] [address] [place] [address] Phone [phone] Care Team Providers Care Channel Development Manager Name Role Phone Noah Floyd M.D. Care Team Information Rece iver [phone] Joseluis Ohara MD Care Team Information Installation Superintendent [phone] Problems Active Problems Provider Date Type 2 [...] ing Provider Date B-D Pen NDL SHRT 91TK0NL(11/06) Mack Use Three Times Daily Before A Meal And 1 Time AT Bedtime 300units Noah Floyd M.D. 06/19/2023 Metformin UHT7297mb Tablets 1 tab by mouth twice a day 180tabs Noah Floyd M.D. 02/12/2023 Jzmvrczfriq667yr Tablets 1 by mouth every day Noah Floyd M.D. 06/15/2022 Lyqssouai59kg Tablets Take half Tablet By Mouth Twice A Day as Directed 90taadarsh Floyd M.D. 06/15/2022 Ugfpfqokho66tp Tablets Take 1 And 1/2 Tablets By Mouth Every Morning 135taadarsh Beckman M.D. 06/15/2022 Uruifayyv57cw Tablets 1 tab by mouth every day as directed 90taadarsh Floyd M.D. 01/04/2022 Lantus Vheuyfng929Bywc/ML Solution Pen-Inject Inject 50 units under the skin twice a day 6ml Shara Beckman M.D. 01/04/2022 Dafguns445Ndfu/ML Solution 10 u ac 30ml Noah Floyd M.D. 01/04/2022 Amlodipine Xudmfzvz9co Tablets Take 1 Tablet By Mouth Once Daily 90taadarsh Beckman M.D. 12/01/2021 Vital Signs Date Vital Result Comment 12/21/2024 8:01am BP Systolic 142 mmHg BP Diastolic 70 mmHg Heart Rate 94 /min Height 69 inches 5'9 Weight 252.50 lb BMI (Body Mass Index) 37.3 kg/m2 Results Test Acquired Date Facility Test Result H/L Range N ote Glucose Fingerstick 12/21/2024 Inhouse Glucose Fingerstick 253 Glucose Fingerstick 08/21/2024 Inhouse Glucose Fingerstick 146 [...] Date Location Provider Dx Diagnosis Office Visit 12/21/2024 8:00a Main Office LAWRENCE Escobar Z79.4 penitentiary (cu rrent) use of insulin E11.3599 Type 2 diab with pro lif diab rtnop without mclr edema, unsp Assessments Date Code Description Provider 12/21/2024 Z79.4 technician terminal and repeater (current) use of i nsulin LAWRENCE Escobar 12/21/2024 E11.3599 Type 2 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 edema, unspecified eye LAWRENCE Escobar Plan of Treatment Future Appointment(s):* 04/20/2025 8:00 am - Gabby Powell CNP at Main Office 08/21/2024 - LAWRENCE Escobar* E78.1 Hypertriglyceridemia * I10 Essential hypertension * Z79.4 penitentiary (current) use of insulin * E11.3599 Type 2 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
== END 2025-01-18 09:53 | disposition home or self-care (01) ==
LOC: HO.HOP 09:14
PROVIDERS: PCP Family Medicine; Visit Provider Clinical Nurse Specialist Psychiatric/Mental Health
DX: F43.23 Adjustment disorder with mixed anxiety and depressed mood (principal)
CPT/HCPCS: 90833; 99213

== ENCOUNTER 2025-02-16 09:14 | Outpatient (AMB) | payer OTHER, MEDICAID, SELFPAY ==
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
--- OUTSIDE RECORDS SUMMARY | 2025-02-16 09:36 | XMS_ITS | Patient Health Record ---
Author Organization [facility] Address [address] [place] [address] Care Team Providers Care Clinical Services Consultant Name Role Phone Nilson Huston MD Primary Care Provider Nicolas Boswell Unavailable [phone] Reason For Referral No Information Medications Medication [...] Problem Type II diabetes mellitus without complication (779105334) Diabetic - NIDDM (250.00) Active confirmed Problem Hammer toe (383208897) Hammer toe (735.4) Active confirmed Problem Ingrowing nail (809000610) Ingrowing Nail (703.0) Active confirmed Problem Onychomycosis (249266550) Onychomycosis (110.1) Active confirmed Problem Pain in limb (63435678) Pain in Limb (729.5) Active confirmed Plan Of Treatment Pending Test Test Name Order Date [id number] NAIL, 6 OR MORE 03/14/2011 [id number] NAIL, 6 OR MORE 05/30/2011 [id number] NAIL, 6 OR MORE 08/20/2011 [id number] NAIL, 6 OR MORE 10/29/2011 [id number] NAIL, 6 OR MORE 01/24/2012 [id number] NAIL, 6 OR MORE 04/24/2012 [id number] NAIL, 6 OR MORE 07/31/2012 [id number] NAIL, 6 OR MORE 11/03/2012 [id number] NAIL, 6 OR MORE 01/28/2013 [id number] NAIL, 6 OR MORE 04/30/2013 91908-Gyfcwhqa Plate 07/31/2012 Insurance Providers Payer Name Payer Address Payer Phone Subscriber Number Group Number Insured Name Patient Relationship to Insured Coverage Start Date Coverage End Date [facility] [address] [facility] [place] [address] [id number] Swapnil Denton i Self - patient is the insured Medical (General) History Medical History History ICD Code Cholesterol diabetic chicken pox hypertension
--- OUTSIDE RECORDS SUMMARY | 2025-02-16 09:36 | XMS_ITS | Continuity of Care Document ---
Author Organization [facility] [address] [facility] [address] [place] [address] Phone [phone] Care Team Providers Care Manager Of Pmo Name Role Phone Noah Floyd M.D. Care Team Information Rece iver [phone] Joseluis Ohara MD Care Team Information Hog Room Supervisor [phone] Problems Active Problems Provider Date Type 2 diabetes mellitus Noah Floyd M.D. O nset: 01/04/2022 Essential hypertension Noah Floyd M.D. Ons et: 01/04/2022 Hypercholesterolemia Noah Floyd M.D. Onset : 01/04/2022 Obesity Noah Floyd M.D. Onset: Retinopathy due to diabetes mellitus Noah caputo M.D. Onset: 02/12/2023 Insulin treated type 2 diabetes mellitus oNah chappell M.D. Onset: 02/12/2023 Hypertriglyceridemia Noah Floyd M.D. Onset : 06/15/2022 Diabetes mellitus Noah Floyd M.D. Onset: 1 08/16/2021 Social History Type Date Description Comments Sex Male Sex Unknown Tobacco Use Start: Unknown Never Smoked Cigarettes ETOH Use Never used alcohol Allergies and adverse reactions Description No Known Drug Allergies Medications Active Medications SIG Qnty Indications Order ing Provider Date B-D Pen NDL SHRT 59QZ3MX(11/06) Mack Use Three Times Daily Before A Meal And 1 Time AT Bedtime 300units Noah Floyd M.D. 06/19/2023 Metformin VJX0494mg Tablets 1 tab by mouth twice a day 180tabs Noah Floyd M.D. 02/12/2023 Zdcpbdsomgi066wi Tablets 1 by mouth every day Noah Floyd M.D. 06/15/2022 Mgevxtplq36cs Tablets Take half Tablet By Mouth Twice A Day as Directed 90taadarsh Floyd M.D. 06/15/2022 Wbspfcntpf46be Tablets Take 1 And 1/2 Tablets By Mouth Every Morning 135tabs Shara Beckman M.D. 06/15/2022 Werqzhrrq30kq Tablets 1 tab by mouth every day as directed 90tabs Noah Floyd M.D. 01/04/2022 Lantus Kfflbsos093Ldch/ML Solution Pen-Inject Inject 50 units under the skin twice a day 6ml Shara Beckman M.D. 01/04/2022 Tbdvzxr045Eqrj/ML Solution 10 u ac 30ml Noah Floyd M.D. 01/04/2022 Amlodipine Wdfaeiec8qg Tablets Take 1 Tablet By Mouth Once Daily 90tabs Shara Beckman M.D. 12/01/2021 Vital Signs Date Vital [...] 12/21/2024 8:00a Main Office LAWRENCE Escobar Z79.4 senior living (cu rrent) use of insulin E11.3599 Type 2 diab with pro lif diab rtnop without mclr edema, unsp Assessments Date Code Description Provider 12/21/2024 Z79.4 manager terminal (current) use of i nsulin LAWRENCE Escobar 12/21/2024 E11.3599 Type 2 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 edema, unspecified eye LAWRENCE Escobar Plan of Treatment Future Appointment(s):* 04/20/2025 8:00 am - Gabby Powell CNP at Main Office 08/21/2024 - LAWRENCE Escobar* E78.1 Hypertriglyceridemia * I10 Essential hypertension * Z79.4 manager terminal (current) use of insulin * E11.3599 Type 2 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
== END 2025-02-16 09:35 | disposition home or self-care (01) ==
LOC: HO.HOP 09:14
PROVIDERS: PCP Family Medicine; Visit Provider Clinical Nurse Specialist Psychiatric/Mental Health
DX: F43.23 Adjustment disorder with mixed anxiety and depressed mood (principal)
CPT/HCPCS: 90833; 99213

== ENCOUNTER 2025-02-24 08:42 | Outpatient (AMB) | payer OTHER, MEDICAID, SELFPAY ==
--- NOTE | 2025-02-24 08:44 | MHC.PC.OV ---
Vital Signs 02/24/25 08:51 Height 5 ft 8 in Weight 255 lb 6 oz BMI 38.8 BP 132/86 Blood Pressure Location Rt brachial Position Sitting Pulse 81 Pulse Source Pulse Oximeter Temp 97.4 F Temp Source Temporal Artery Scan Pulse Oximetry (%) 95 Oxygen Delivery Method Room Air Intake Visit Reasons: f/u diabetes Intake Note: Swapnil presents in the office today for a follow up to his diabetes. Allergies No Known Allergies Allergy (Verified 02/24/25 08:49) Medication List - Last Reconciled 02/24/25 by Joseluis Ohara MD amlodipine 5 mg PO DAILY 90 days atorvastatin 10 mg PO BEDTIME 30 days betamethasone valerate 0.1% 1 appl topical BID PRN 30 days bisacodyl (Dulcolax (bisacodyl)) 20 mg (4 x 5 mg) PO ONCE 1 day empagliflozin (Jardiance) 25 mg PO DAILY 90 days fenofibrate 160 mg PO DAILY 30 days glipizide ER 10 mg PO DAILY 30 days insulin glargine (Lantus Solostar U-100 Insulin) 56 units subcut DAILY lisinopril 15 mg PO QAM metformin 1,000 mg PO BID 90 days mirtazapine 15 mg PO BEDTIME mupirocin 2% 1 appl topical BID 10 days pen needle, diabetic (BD Ultra-Fine Short Pen Needle) As directed polyethylene glycol 3350 (Miralax) 238 grams PO ONCE Tobacco use date assessed: 02/24/25 Dental Screening Dental Screen Date: 02/24/25 Did you have a dental visit in the last 12 months?: Yes Did you have a dental problem in the last 6 months where you did not have access to dental care?: No Was dental information given to patient?: Patient has dentist HPI f/u diabetes HPI Details 54 y/o male presents to f/u diabetes. Last A1c 11/17/24 8.3%. A1c today worsened to 10.8%. Pt notes he is on Lantus 56 units in the morning and at night. Also on metformin 1000mg b.i.d, glipizide 5mg. Blood pressure today 132/86, 81p. He is on lisinopril 1mg, amlodipine 5mg daily. HPI Comments History of Present Illness Details Documentation assistance for Joseluis Ohara MD, was provided by Ricardo Laboy,? Distribution Analyst on 02/24/2025 at 9:15 AM EST. I, Dr. Ohara, have read, observed, and verified documentation. ?? [facility] Medical History (Updated 02/24/25 @ 09:43 by Joseluis Ohara MD) Major depressive disorder, single episode with anxious distress Adjustment disorder with anxiety Diabetes Surgical History H/O eye surgery Social History (Updated 02/24/25 @ 08:51 by Jenifer Rahman MA) Housing: House Alcohol intake: never Patient Tobacco Use Status: Never used Tobacco e-Cigarette/Vaping Use: Never Used Second Hand Smoke Exposure: No Use of substances other than those prescribed or required for medical reasons: No service: No Current occupational status: employed Current occupational exposures/hazards: No Cognitive needs: No Hearing needs: No Vision needs: No Questionnaire Thrive Questionnaire Date Thrive assessed: 08/12/24 I am a: Patient What is your living situation today?: I have a steady place to live Within the past 12 months, did the food you bought not last and you didn't have the money to get more?: Sometimes True Within the past 12 months, did you worry whether your food would run out before you got money to buy more?: Sometimes True Do you have trouble paying for medicines?: No Do you have trouble getting transportation to medical appointments?: No Do you have trouble paying your heating and electricity bill?: No Do you have trouble taking care of your child, family member or friend?: No Do you have trouble with day-to-day activities such as bathing, preparing meals, shopping, managing finances, etc.?: No Are you currently unemployed and looking for a job?: No Are you interested in more education?: No Please select the resources that you would like help with: None Currently or been in a relationship where the following occur: I choose not to answer THRIVE Score: 2 SHARON-7 AMB Questionnaire SHARON-7 Date SHARON - 7 assessed: 11/17/24 Source: Developed by Drs. Ar Peres, Luann Wong, Philip Cosme and colleagues, with an educational efe from [employer]. Review of Systems Const Denies chills, Denies fatigue, Denies fever(s), Denies headache(s) and Denies weakness ENT Denies dizziness and Denies headache(s) Card Denies dyspnea Resp Denies cough, Denies dyspnea, Denies wheezing and Denies other (shortness of breath) Musc Denies numbness and Denies tingling Neuro Denies dizziness, Denies headache(s), Denies numbness, Denies tingling and Denies weakness Psych Denies anxiety and Denies depression Endo Denies fatigue Aller/Immun Denies wheezing Physical exam (Primary Care) Vital Signs: Last Vital Signs Temp 97.4 F 02/24/25 08:51 Pulse 81 02/24/25 08:51 BP 132/86 02/24/25 08:51 Pulse Ox 95 02/24/25 08:51 Oxygen Delivery Method Room Air 02/24/25 08:51 BMI result Body Mass Index 38.8 Tobacco/Smoking Status: Tobacco use Status Tobacco use date assessed 02/24/25 02/24/25 08:57 Patient Tobacco Use Status Never used Tobacco 02/24/25 08:51 e-Cigarette/Vaping Use Never Used 02/24/25 08:51 Thrive Assessment: Date of Thrive Assessment Date Thrive assessed 08/12/24 02/24/25 08:47 Currently or been in a relationship where the following occur: I choose not to answer Const General: well developed; No acute distress Nutritional Appearance: well nourished Orientation/consciousness: patient oriented x3 HENMT Head: Yes normocephalic and Yes atraumatic Eyes General: appearance normal, both eyes and all related structures Pupils: Equal, round and reactive pupils present EOM: EOMs intact bilaterally Resp Effort & Inspection: normal respiratory effort Auscultation: clear to auscultation bilaterally Cardio Rate: regular rate Rhythm: regular rhythm Heart sounds: S1 normal heart sound present, S2 normal heart sound present, no gallops, no murmurs and no rubs Neuro General: patient oriented x3 and gait normal Cranial nerves: Yes Equal, round and reactive pupils present Psych Affect: normal affect Results AMB Hemoglobin A1c AMB Hemoglobin A1c 10.8 % Last Edit by Jenifer Rahman MA on 02/24/25 09:10 Results Reviewed Results Reviewed: Laboratory Last Values Hgb A1c (Clinic) 10.8 % (4.0-6.0) H 02/24/25 08:59 Coding Level of Care Code Est Pt Level 4 (61226) Diagnoses Hypertension I10 Difficulty concentrating R41.840 Uncontrolled diabetes mellitus with hyperglycemia E11.65 Elevated PSA R97.20 Diabetes mellitus with neuropathy E11.40 Assessment & Plan Assessment & Plan (1) Hypertension: Code(s): I10 - Essential (primary) hypertension Category: Medical Plan: Blood pressure is controlled. Goal is less than 140/90 Continue current medication (2) Difficulty concentrating: Code(s): R41.840 - Attention and concentration deficit Category: Medical Plan: Patient was referred for psychology eval (3) Uncontrolled diabetes mellitus with hyperglycemia: Code(s): E11.65 - Type 2 diabetes mellitus with hyperglycemia Category: Medical (4) Elevated PSA: Code(s): R97.20 - Elevated prostate specific antigen [PSA] Category: Medical (5) Diabetes mellitus with neuropathy: Code(s): E11.40 - Type 2 diabetes mellitus with diabetic neuropathy, unspecified Category: Medical Plan A1c is much higher than last visit. Now 10.8%. Goal is less than 7% Patient says that his morning blood sugars are around one hundred Patient has seen Endocrinology since our last visit Patient is able to describe his medication regimen and says he is taking it He is only checking his blood sugars in the morning. Will have him check more frequently. He does say that he has a continues glucose monitor which he has not set up yet. Check blood sugars more frequently and use CGM when set up. Continue current medication regimen and will increase glipizide for some improved blood sugar control during the day Also strongly encouraged he decrease sugars and starches in his diet Follow-up with endocrinology He has an appointment me next month for a physical He will call sooner if blood sugars are still poorly controlled. Patient notes lower extremity paresthesias Does not have a cashiers supervisor and I have referred him today. Up-to-date with eye exam PSA was elevated and I had asked the patient to recheck this. He has not done this yet but do so this week. Will follow-up at his upcoming visit Orders: Orders AMB Hemoglobin A1c Today E11.9 - Type 2 diabetes mellitus without complications Referrals Podiatry Referral E11.40 - Type 2 diabetes mellitus with diabetic neuropathy, unspecified Medications: Changed From glipizide ER 5 mg PO DAILY 30 days 30 tabs 2RF To glipizide ER 10 mg PO DAILY 30 tabs 2RF 30 days From insulin glargine (Lantus Solostar U-100 Insulin) 56 units subcut DAILY E11.9 - Type 2 diabetes mellitus without complications To insulin glargine (Lantus Solostar U-100 Insulin) 56 units (0.56 mL) subcut BID 36 mL 3RF 30 days E11.9 - Type 2 diabetes mellitus without complications
[2025-02-24 08:51] VITALS: BP 132/86; PULSE 81; TEMP 36.3; O2SAT 95; BMI 38.8
--- OUTSIDE RECORDS SUMMARY | 2025-02-24 09:10 | XMS_ITS | Continuity of Care Document ---
Author Organization [facility] [address] [place] [address] Phone [phone] Care Team Providers Care Biomedical Scientist Name Role Phone Noah Floyd M.D. Care Team Information Rece iver [phone] Joseluis Ohara MD Care Team Information Habitat Management Coordinator [phone] Problems Active Problems Provider Date Type 2 [...] ing Provider Date B-D Pen NDL SHRT 33GE7HM(11/06) Mack Use Three Times Daily Before A Meal And 1 Time AT Bedtime 300units Noah Floyd M.D. 06/19/2023 Metformin NIT7366ms Tablets 1 tab by mouth twice a day 180tabs Noah Floyd M.D. 02/12/2023 Bcbkponbbln273te Tablets 1 by mouth every day Noah Floyd M.D. 06/15/2022 Jyanhtqby28xg Tablets Take half Tablet By Mouth Twice A Day as Directed 90tabs Noah Floyd M.D. 06/15/2022 Vronsstoas33ze Tablets Take 1 And 1/2 Tablets By Mouth Every Morning 135tabs Shara Beckman M.D. 06/15/2022 Pzqcolpal04kp Tablets 1 tab by mouth every day as directed 90tabs Noah Floyd M.D. 01/04/2022 Lantus Vumbkhqx886Tfmh/ML Solution Pen-Inject Inject 50 units under the skin twice a day 90ml Gabby Powell CNP 01/04/2022 Ibcushq188Iquw/ML Solution 10 u ac 30ml Noah Floyd M.D. 01/04/2022 Amlodipine Jivqxtpx1lr Tablets Take 1 Tablet By Mouth Once [...] 12/21/2024 8:00a Main Office LAWRENCE Escobar Z79.4 technician terminal and repeater (cu rrent) use of insulin E11.3599 Type [...] Hypertriglyceridemia * I10 Essential hypertension * Z79.4 technician terminal and repeater (current) use of insulin * E11.3599 Type 2 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
--- OUTSIDE RECORDS SUMMARY | 2025-02-24 09:10 | XMS_ITS | Patient Health Record ---
Author Organization [facility] Address [address] [place] [address] Care Team Providers Care Title Processor Name Role Phone Nilson Huston MD Primary Care Provider Nicolas Boswell Unavailable [phone] Reason For Referral No Information Medications Medication [...] Problem Type II diabetes mellitus without complication (935312613) Diabetic - NIDDM (250.00) Active confirmed Problem Hammer toe (020106467) Hammer toe (735.4) Active confirmed Problem Ingrowing nail (651873809) Ingrowing Nail (703.0) Active confirmed Problem Onychomycosis (112809198) Onychomycosis (110.1) Active confirmed Problem Pain in limb (04483350) Pain in Limb (729.5) Active confirmed Plan Of Treatment Pending Test Test Name Order Date [id number] NAIL, 6 OR MORE 03/14/2011 [id number] NAIL, 6 OR MORE 05/30/2011 05125-TSTZQAX NAIL, 6 OR MORE 08/20/2011 [id number] NAIL, 6 OR MORE 10/29/2011 [id number] NAIL, 6 OR MORE 01/24/2012 [id number] NAIL, 6 OR MORE 04/24/2012 [id number] NAIL, 6 OR MORE 07/31/2012 [id number] NAIL, 6 OR MORE 11/03/2012 [id number] NAIL, 6 OR MORE 01/28/2013 [id number] NAIL, 6 OR MORE 04/30/2013 67032-Ghlhtrvs Plate 07/31/2012 Insurance Providers Payer Name Payer Address Payer Phone Subscriber Number Group Number Insured Name Patient Relationship to Insured Coverage Start Date Coverage End Date [facility] [address] [place] [address] [id number] Swapnil Denton i Self - patient is the insured Medical (General) History Medical History History ICD Code Cholesterol diabetic chicken pox hypertension
== END 2025-02-24 09:39 | disposition home or self-care (01) ==
LOC: HO.HMCFM 08:43
PROVIDERS: PCP Family Medicine; Visit Provider Family Medicine
DX: I10 Essential (primary) hypertension (principal); R41.840 Attention and concentration deficit; E11.65 Type 2 diabetes mellitus with hyperglycemia; R97.20 Elevated prostate specific antigen [PSA]; E11.40 Type 2 diabetes mellitus with diabetic neuropathy, unspecified

== ENCOUNTER → 2025-02-24 08:42 | Outpatient (BNVA) | payer OTHER, MEDICAID, SELFPAY | PROVIDERS: PCP Family Medicine; Visit Provider Family Medicine | DX: I10 Essential (primary) hypertension (principal); R41.840 Attention and concentration deficit; E11.65 Type 2 diabetes mellitus with hyperglycemia; R97.20 Elevated prostate specific antigen [PSA]; E11.40 Type 2 diabetes mellitus with diabetic neuropathy, unspecified | CPT/HCPCS: 83036 ==

== ENCOUNTER 2025-03-23 07:58 | Outpatient (AMB) | payer OTHER, MEDICAID, SELFPAY ==
[2025-03-23 08:09] VITALS: BMI 36.5
--- NOTE | 2025-03-23 08:09 | A.OFFVIS_ITS ---
Vital Signs 03/23/25 08:09 Height 5 ft 8 in Weight 240 lb BMI 36.5 Intake Visit Reasons: Diabetes Intake Note: Swapnil is a 54 year old male who presents today as a new patient for a diabetic foot exam. Pt states his glucose is currently at 102 and last reported A1c was at 10.8 on 02/24/25. He mentions noticing numbness and tingling in his feet he believes this is due to hurting his feet during a fall about 5-6 months ago. Patient reports he is currently taking gabapentin but he has no back pain or injuries. Allergies No Known Allergies Allergy (Verified 03/23/25 08:10) HPI HPI Diabetes: Details: 54-year-old male with past medical history of type 2 diabetes mellitus, hypertension, hyperlipidemia who presents for annual diabetic foot evaluation as well as bilateral leg pain. He states he sustained a fall proximally 5 months ago and has had chronic leg pain and bruising since then. He also notes pain to the top of his foot and ankles worst when ambulating. He has also been experiencing burning and tingling pain to his feet, worse to his left big toe. He denies any back pain or history of back injuries. He denies any symptoms of nausea vomiting fever shortness of breath chest pain or chills. He does endorse biliary vision to his right eye, currently seeing an fiberglasser. He states he has had difficulty with glycemic control after his fall however he is working with his PCP and drilling field specialist for further management. Patient works in [employer]. [facility] Medical History (Updated 03/23/25 @ 08:57 by Harris Canchola DPM) Major depressive disorder, single episode with anxious distress Adjustment disorder with anxiety Diabetes Surgical History H/O eye surgery Social History (Updated 02/24/25 @ 08:51 by Jenifer Rahman MA) Housing: House Alcohol intake: never Patient Tobacco Use Status: Never used Tobacco e-Cigarette/Vaping Use: Never Used Second Hand Smoke Exposure: No service: No Current occupational status: employed Current occupational exposures/hazards: No Cognitive needs: No Hearing needs: No Vision needs: No Review of Systems Const All systems reviewed & are unremarkable except as noted in HPI and below Physical Exam Vital Signs: BMI result Body Mass Index 36.5 Extrem Other: *Bilateral Lower Extremity Focused Diabetic Foot Exam Vascular: DP/PT 2/4, CFT<3s to digits, TG warm to cool, no pedal edema, pedal hair absent from mid leg to toes. Derm: Skin: No open lesions, ulcerations, or calluses. Interdigital spaces: Macerations to interspaces 1 through 4 bilateral. Nails: Elongated dystrophic toenails x10. Neuro: [place]-mireya monofilament (10g) test 10/10 intact to right foot, 10/10 intact to left foot. Msk: Deformities: High arch cavus feet bilaterally, non reducible on weight-bearing. Muscle strength: 5/5 in all muscle groups. Gait: Normal, no antalgic or steppage gait observed. Footwear Assessment: Shoes inspected; appropriate fit, no excessive wear, or foreign objects noted. Office Procedures AMB Debridement/Avulsion Podia Details: Procedure: Nail debridement Location: Bilateral feet Anesthesia: N/A Description: The affected toenails were cleansed with an antiseptic solution. Using sterile nail nippers and a rotary idalia, dystrophic and mycotic nail material was carefully debrided and reduced in thickness. Care was taken to avoid trauma to the surrounding skin and nail bed. All debris was removed as tolerated. The area was inspected for signs of infection or ulceration. Patient tolerated the procedure well without complications. Tolerance: Patient tolerated procedure well, no immediate complications. Class B findings as per physical exam findings above. The patient has a diagnosis of diabetes mellitus and presents with elongated, thickened toenails. Due to underlying diabetic neuropathy and mild vascular disease findings, the patient is at increased risk for complications such as ulceration, infection, and difficulty with self-care. Debridement of elongated toenails is medically necessary to prevent development of pressure-related lesions, reduce risk of secondary infection, and maintain foot health in her high-risk comorbidities. 24568-Jsnxpkiqkdu of Nail 6+ Procedure code (CPT) selection complete Results Reviewed Results Reviewed: Laboratory Tests 02/24/25 08:59 Hgb A1c (Clinic) 10.8 H Assessment & Plan Assessment & Plan (1) Diabetes mellitus with neuropathy: Code(s): E11.40 - Type 2 diabetes mellitus with diabetic neuropathy, unspecified Category: Medical Qualifiers: Diabetes mellitus type: type 2 Diabetes mellitus local company intermodal truck driver insulin use: unspecified local company intermodal truck driver insulin use status Qualified Code(s): E11.40 - Type 2 diabetes mellitus with diabetic neuropathy, unspecified Plan: Risk Stratification: No current ulceration, infection, or pre-ulcerative lesion. No loss of protective sensation or peripheral arterial disease. No plans for further testing/referrals for non-invasive vascular studies. Patient is at low risk for diabetic foot complications at this time. Recommendations: Continue routine foot care and daily self-inspection. Recommend moisturizing daily. Recommend supportive proper fitting shoe-wear. The patient may require diabetic shoes in the future. Reinforced diabetic foot education and risks from peripheral neuropathy. (2) Contusion of leg, multiple sites: Code(s): S80.10XA - Contusion of unspecified lower leg, initial encounter Category: Medical Qualifiers: Encounter type: sequela Laterality: unspecified laterality Qualified Code(s): S80.10XS - Contusion of unspecified lower leg, sequela Plan: * Discussed possible etiology of his bilateral leg pain. * Referred for bilateral tib/fib x-rays. (3) Pain of midfoot: Code(s): M79.673 - Pain in unspecified foot Category: Medical Qualifiers: Laterality: unspecified laterality Qualified Code(s): M79.673 - Pain in unspecified foot Plan: * Referred for bilateral foot x-rays to evaluate for possible midfoot arthritis (4) Ankle tendinitis: Code(s): M77.50 - Other enthesopathy of unspecified foot and ankle Category: Medical Plan: * Recommended stretching and range of motion exercises. * Recommended physical therapy however the patient would like to see if his symptoms improve first before considering PT. (5) Nail disorder (onychogryphosis): Code(s): L60.2 - Onychogryphosis Category: Medical Plan: * Debrided elongated thickened toenails x 10 using a sterile nail Nipper. (6) Tinea pedis: Code(s): B35.3 - Tinea pedis Category: Medical Qualifiers: Laterality: bilateral Qualified Code(s): B35.3 - Tinea pedis Plan: * Rx Ciclopirox gel * Instructed the patient to dry his feet daily and to use an anti-perspriant spray. Orders: Orders XR Tibia Fibula Isaías 2V Today S80.10XA - Contusion of unspecified lower leg, initial encounter AMB Debridement/Avulsion Podiatry Today L60.2 - Onychogryphosis XR Foot Isaías 3V Today M79.673 - Pain in unspecified foot XR Ankle Isaías min 3V Today M77.50 - Other enthesopathy of unspecified foot and ankle Medications: New ciclopirox 0.77% Apply between toes of both feet daily. 1 appl topical DAILY 30 grams 3RF fungal infections 4 weeks B35.3 - Tinea pedis Coding Level of Care Code New Pt Level 4 (32556) Diagnoses Type 2 diabetes mellitus with diabetic neuropathy, unspecified whether local company intermodal truck driver insulin use E11.40 Diabetes mellitus type: type 2 Diabetes mellitus local company intermodal truck driver insulin use: unspecified local company intermodal truck driver insulin use status Contusion of multiple sites of lower extremity, unspecified laterality, sequela S80.10XS Encounter type: sequela Laterality: unspecified laterality Pain of midfoot, unspecified laterality M79.673 Laterality: unspecified laterality Ankle tendinitis M77.50 Nail disorder (onychogryphosis) L60.2 Tinea pedis of both feet B35.3 Laterality: bilateral CPT Codes Skin Debridement - CPT: 28116-Kninaideqsj of Nail 6+ ([id number]) Time Spent (min) 45
== END 2025-03-23 08:49 | disposition home or self-care (01) ==
LOC: HO.HPODS 07:59
PROVIDERS: PCP Family Medicine; Visit Provider Student in an Organized Health Care Education/Training Program
DX: E11.40 Type 2 diabetes mellitus with diabetic neuropathy, unspecified (principal); S00-T88 Injury, poisoning and certain other consequences of external causes; M79.673 Pain in unspecified foot; M77.50 Other enthesopathy of unspecified foot and ankle; L60.2 Onychogryphosis; B35.3 Tinea pedis
CPT/HCPCS: 11721; 99204

== ENCOUNTER → 2025-03-23 07:58 | Outpatient (BNVA) | payer OTHER, MEDICAID, SELFPAY | PROVIDERS: PCP Family Medicine; Visit Provider Student in an Organized Health Care Education/Training Program | DX: L60.2 Onychogryphosis (principal); B35.3 Tinea pedis; M79.673 Pain in unspecified foot; M77.50 Other enthesopathy of unspecified foot and ankle; E11.40 Type 2 diabetes mellitus with diabetic neuropathy, unspecified | CPT/HCPCS: 11721 ==

== ENCOUNTER 2025-04-07 08:41 | Outpatient (REF) | payer OTHER, SELFPAY ==
--- NOTE | ~2025-04-07 | XR_ITS ---
EXAMINATION: X-ray bilateral tibia and fibula X-ray bilateral ankle X-ray bilateral feet CLINICAL INFORMATION: Contusion COMPARISON: None TECHNIQUE: Bilateral tibia and fibula each 2 views. Bilateral ankles each 3 views. Bilateral foot each 3 views. FINDINGS: Left tibia and fibula: No acute fracture, malalignment or worrisome bony lesion. Osseous mineralization is normal. No abnormal soft tissue calcification. No radiopaque foreign body seen. Knee and ankle joint articulation is maintained. Left ankle: No acute fracture, dislocation or worrisome bony lesion. The ankle mortise is asymmetric, could be due to positioning/technique. Talar dome is intact. Subtalar articulation is maintained. Posterior calcaneal enthesopathy. Mild soft tissue swelling. No abnormal soft tissue calcification. No radiopaque foreign body. Left foot: No acute fracture, malalignment or significant bony lesion.. Joint spaces are maintained. No erosions. No abnormal soft tissue calcification. Posterior calcaneal enthesopathy. Right tibia and fibula: No acute fracture, malalignment or worrisome bony lesion. Knee joint articulation is maintained. No abnormal soft tissue calcification or radiopaque foreign body seen. Right ankle:. No acute fracture, dislocation or worrisome bony lesion. Ankle mortise is asymmetric, could be related to positioning/technique. Talar dome is intact. Posterior calcaneal spur. Subtalar articulation is maintained. Mild soft tissue swelling. No radiopaque foreign body. No abnormal soft tissue calcification. Right foot: No evidence of acute fracture, dislocation or worrisome bony lesion. No significant joint space narrowing. No erosions. No abnormal soft tissue calcification. Posterior calcaneal spur. XR/XR Tibia Fibula Isaías 2V IMPRESSION: Left tibia and fibula, ankle, foot: No radiographic evidence of acute osseous findings. Additional/follow-up imaging as clinically indicated. Additional details as above. Right tibia and fibula, ankle and foot: No radiographic evidence of acute osseous findings. Additional/follow-up imaging as clinically indicated. Additional details as above Electronically signed by: Pedro Luis Martinez MD 04/07/2025 09:28 AM EDT
--- NOTE | ~2025-04-07 | XR_ITS ---
EXAMINATION: X-ray bilateral tibia and fibula X-ray bilateral ankle X-ray bilateral feet CLINICAL INFORMATION: Contusion COMPARISON: None TECHNIQUE: Bilateral tibia and fibula each 2 views. Bilateral ankles each 3 views. Bilateral foot each 3 views. FINDINGS: Left tibia and fibula: No acute fracture, malalignment or worrisome bony lesion. Osseous mineralization is normal. No abnormal soft tissue calcification. No radiopaque foreign body seen. Knee and ankle joint articulation is maintained. Left ankle: No acute fracture, dislocation or worrisome bony lesion. The ankle mortise is asymmetric, could be due to positioning/technique. Talar dome is intact. Subtalar articulation is maintained. Posterior calcaneal enthesopathy. Mild soft tissue swelling. No abnormal soft tissue calcification. No radiopaque foreign body. Left foot: No acute fracture, malalignment or significant bony lesion.. Joint spaces are maintained. No erosions. No abnormal soft tissue calcification. Posterior calcaneal enthesopathy. Right tibia and fibula: No acute fracture, malalignment or worrisome bony lesion. Knee joint articulation is maintained. No abnormal soft tissue calcification or radiopaque foreign body seen. Right ankle:. No acute fracture, dislocation or worrisome bony lesion. Ankle mortise is asymmetric, could be related to positioning/technique. Talar dome is intact. Posterior calcaneal spur. Subtalar articulation is maintained. Mild soft tissue swelling. No radiopaque foreign body. No abnormal soft tissue calcification. Right foot: No evidence of acute fracture, dislocation or worrisome bony lesion. No significant joint space narrowing. No erosions. No abnormal soft tissue calcification. Posterior calcaneal spur. XR/XR Ankle Isaías min 3V IMPRESSION: Left tibia and fibula, ankle, foot: No radiographic evidence of acute osseous findings. Additional/follow-up imaging as clinically indicated. Additional details as above. Right tibia and fibula, ankle and foot: No radiographic evidence of acute osseous findings. Additional/follow-up imaging as clinically indicated. Additional details as above Electronically signed by: Pedro Luis Martinez MD 04/07/2025 09:28 AM EDT
--- NOTE | ~2025-04-07 | XR_ITS ---
EXAMINATION: X-ray bilateral tibia and fibula X-ray bilateral ankle X-ray bilateral feet CLINICAL INFORMATION: Contusion COMPARISON: None TECHNIQUE: Bilateral tibia and fibula each 2 views. Bilateral ankles each 3 views. Bilateral foot each 3 views. FINDINGS: Left tibia and fibula: No acute fracture, malalignment or worrisome bony lesion. Osseous mineralization is normal. No abnormal soft tissue calcification. No radiopaque foreign body seen. Knee and ankle joint articulation is maintained. Left ankle: No acute fracture, dislocation or worrisome bony lesion. The ankle mortise is asymmetric, could be due to positioning/technique. Talar dome is intact. Subtalar articulation is maintained. Posterior calcaneal enthesopathy. Mild soft tissue swelling. No abnormal soft tissue calcification. No radiopaque foreign body. Left foot: No acute fracture, malalignment or significant bony lesion.. Joint spaces are maintained. No erosions. No abnormal soft tissue calcification. Posterior calcaneal enthesopathy. Right tibia and fibula: No acute fracture, malalignment or worrisome bony lesion. Knee joint articulation is maintained. No abnormal soft tissue calcification or radiopaque foreign body seen. Right ankle:. No acute fracture, dislocation or worrisome bony lesion. Ankle mortise is asymmetric, could be related to positioning/technique. Talar dome is intact. Posterior calcaneal spur. Subtalar articulation is maintained. Mild soft tissue swelling. No radiopaque foreign body. No abnormal soft tissue calcification. Right foot: No evidence of acute fracture, dislocation or worrisome bony lesion. No significant joint space narrowing. No erosions. No abnormal soft tissue calcification. Posterior calcaneal spur. XR/XR Foot Isaías 3V IMPRESSION: Left tibia and fibula, ankle, foot: No radiographic evidence of acute osseous findings. Additional/follow-up imaging as clinically indicated. Additional details as above. Right tibia and fibula, ankle and foot: No radiographic evidence of acute osseous findings. Additional/follow-up imaging as clinically indicated. Additional details as above Electronically signed by: Pedro Luis Martinez MD 04/07/2025 09:28 AM EDT
--- OUTSIDE RECORDS SUMMARY | 2025-04-07 09:12 | XMS_ITS | Continuity of Care Document ---
Author Organization [facility] [address] [place] [address] Phone [phone] Care Team Providers Care Commercial Glazier Name Role Phone Noah Floyd M.D. Care Team Information Rece iver [phone] Joseluis Ohara MD Care Team Information Damage Adjuster [phone] Problems Active Problems Provider Date Type 2 [...] ing Provider Date B-D Pen NDL SHRT 08QY5VQ(11/06) Mack Use Three Times Daily Before A Meal And 1 Time AT Bedtime 300units Noah Floyd M.D. 06/19/2023 Metformin [id number] Tablets 1 tab by mouth twice a day 180tabs Noah Floyd M.D. 02/12/2023 Sqtypvybzyd447hx Tablets 1 by mouth every day Noah Floyd M.D. 06/15/2022 Oonlkmmxv21kw Tablets Take half Tablet By Mouth Twice A Day as Directed 90tabs oNah Floyd M.D. 06/15/2022 Vewtoigcan71bz Tablets Take 1 And 1/2 Tablets By Mouth Every Morning 135tabs Shara Beckman M.D. 06/15/2022 Dvxdvlszn27vm Tablets 1 tab by mouth every day as directed 90tabs Noah Floyd M.D. 01/04/2022 Lantus Uprlzewf766Morw/ML Solution Pen-Inject Inject 50 units under the skin twice a day 90ml Gabby Powell CNP 01/04/2022 Hlvktfg267Ulsi/ML Solution 10 u ac 30ml Noah Floyd M.D. 01/04/2022 Amlodipine Xxkpgxsf2kv Tablets Take 1 Tablet By Mouth Once [...] 12/21/2024 8:00a Main Office LAWRENCE Escobar Z79.4 laundromat manager (cu rrent) use of insulin E11.3599 Type 2 diab with pro lif diab rtnop without mclr edema, unsp Assessments Date Code Description Provider 12/21/2024 Z79.4 laundromat manager (current) use of i nsulin LAWRENCE Escobar 12/21/2024 E11.3599 Type 2 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 edema, unspecified eye LAWRENCE Escobar Plan of Treatment Future Appointment(s):* 04/20/2025 8:00 am - Gabby Powell CNP at Main Office 08/21/2024 - LAWRENCE Escobar* E78.1 Hypertriglyceridemia * I10 Essential hypertension * Z79.4 group home (current) use of insulin * E11.3599 Type 2 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
--- OUTSIDE RECORDS SUMMARY | 2025-04-07 09:12 | XMS_ITS | Patient Health Record ---
[facility] Organization [facility] Address [address] [place] [address] Care Team Providers Care Universal Grinder Set Up Operator Name Role Phone Nilson Huston MD Primary Care Provider Nicolas Boswell Unavailable [phone] Reason For Referral No Information Medications Medication [...] Problem Type II diabetes mellitus without complication (109950033) Diabetic - NIDDM (250.00) Active confirmed Problem Hammer toe (293478496) Hammer toe (735.4) Active confirmed Problem Ingrowing nail (738296098) Ingrowing Nail (703.0) Active confirmed Problem Onychomycosis (245976558) Onychomycosis (110.1) Active confirmed Problem Pain in limb (98923072) Pain in Limb (729.5) Active confirmed Plan Of Treatment Pending Test Test Name Order Date [id number] NAIL, 6 OR MORE 03/14/2011 [id number] NAIL, 6 OR MORE 05/30/2011 [id number] NAIL, 6 OR MORE 08/20/2011 [id number] NAIL, 6 OR MORE 10/29/2011 [id number] NAIL, 6 OR MORE 01/24/2012 [id number] NAIL, 6 OR MORE 04/24/2012 [id number] NAIL, 6 OR MORE 07/31/2012 [id number] NAIL, 6 OR MORE 11/03/2012 [id number] NAIL, 6 OR MORE 01/28/2013 [id number] NAIL, 6 OR MORE 04/30/2013 [id number] Plate 07/31/2012 Insurance Providers Payer Name Payer Address Payer Phone Subscriber Number Group Number Insured Name Patient Relationship to Insured Coverage Start Date Coverage End Date [facility] [address] [place] [address] [id number] Swapnil Denton i Self - patient is the insured Medical (General) History Medical History History ICD Code Cholesterol diabetic chicken pox hypertension
== END 2025-04-07 08:42 | disposition home or self-care (01) ==
LOC: HO.XRAY 08:41
PROVIDERS: PCP Family Medicine; Visit Provider Student in an Organized Health Care Education/Training Program
DX: S80.10XA Contusion of unspecified lower leg, initial encounter (principal); M77.51 Other enthesopathy of right foot and ankle; M77.52 Other enthesopathy of left foot and ankle
CPT/HCPCS: 73590; 73610; 73630

== ENCOUNTER → 2025-04-07 08:46 | Outpatient (BNV) | payer OTHER, SELFPAY | PROVIDERS: PCP Family Medicine; Visit Provider Radiology Diagnostic Ultrasound | DX: M77.50 Other enthesopathy of unspecified foot and ankle (principal); M79.671 Pain in right foot; M79.672 Pain in left foot; S80.10XA Contusion of unspecified lower leg, initial encounter | CPT/HCPCS: 73590; 73610; 73630 ==

== ENCOUNTER 2025-04-09 08:42 | Outpatient (AMB) | payer OTHER, SELFPAY ==
--- NOTE | 2025-04-09 08:44 | MHC.OFFVIS ---
Vital Signs 04/09/25 08:45 Height 5 ft 8 in Weight 240 lb BMI 36.5 Intake Visit Reasons: fu Diabetes Intake Note: Swapnil is a 54 year old male who presents to the office today for a follow up for diabetes. Pt states he is still experiencing some discomfort in his ankle and state that he has been using the topical cream. X-rays were completed and in chart for review. Allergies No Known Allergies Allergy (Verified 04/09/25 08:46) HPI HPI fu Diabetes: Details: 54-year-old male with past medical history of type 2 diabetes mellitus, hypertension, hyperlipidemia who presents for 2.5 week follow up for bilateral leg pain. Patient states he has been doing the stretching and xpehd-ym-zvgmvn exercises, notes mild relief. Still endorsing persistent pain to the front of his leg and side of his ankle. He states he has been doing a lot of activity at work ([employer]). He also notes bilateral lower extremity swelling after activity. History: He states he sustained a fall proximally 5 months ago and has had chronic leg pain and bruising since then. He also notes pain to the top of his foot and ankles worst when ambulating. He has also been experiencing burning and tingling pain to his feet, worse to his left big toe. He denies any back pain or history of back injuries. He denies any symptoms of nausea vomiting fever shortness of breath chest pain or chills. He states he has had difficulty with glycemic control after his fall however he is working with his PCP and internet ecommerce specialist for further management. Patient works in [employer]. [employer] [employer] Medical History Major depressive disorder, single episode with anxious distress Adjustment disorder with anxiety Diabetes Surgical History H/O eye surgery Social History Housing: House Alcohol intake: never Patient Tobacco Use Status: Never used Tobacco e-Cigarette/Vaping Use: Never Used Second Hand Smoke Exposure: No service: No Current occupational status: employed Current occupational exposures/hazards: No Cognitive needs: No Hearing needs: No Vision needs: No Review of Systems Const All systems reviewed & are unremarkable except as noted in HPI and below Physical Exam Vital Signs: BMI result Body Mass Index 36.5 Extrem Other: *Bilateral Lower Extremity Focused Diabetic Foot Exam Vascular: DP/PT 2/4, CFT<3s to digits, TG warm to cool, no pedal edema, pedal hair absent from mid leg to toes. Varicose veins to the dorsal foot and medial ankle bilaterally. Derm: Skin: No open lesions, ulcerations, or calluses. Interdigital spaces: Macerations to interspaces 1 through 4 bilateral. Nails: Dystrophic, short nails. Neuro: [place]-mireya monofilament (10g) test 10/10 intact to right foot, 10/10 intact to left foot. Msk: Moderate tenderness along the anterior leg compartment bilaterally round the posterior tibial tendon from mid leg to the ankle to its insertion. Deformities: High arch cavus feet bilaterally, non reducible on weight-bearing. Muscle strength: 5/5 in all muscle groups. Gait: Normal, no antalgic or steppage gait observed. Footwear Assessment: Shoes inspected; appropriate fit, no excessive wear, or foreign objects noted. Results Reviewed Results Reviewed: Podiatry X-ray Read: 04/07/2025 X-ray right foot 3 views (AP, MO, Lateral) reviewed which shows forefoot met adductus deformity, joint space narrowing of the tarsometatarsal joints. Hallux abductovalgus deformity. no fractures, dislocations, or gross abnormalities. Bone density is within normal limits. Normal anatomy. No evidence of swelling, foreign body, or calcifications. I personally reviewed the imaging and my findings are listed above. Podiatry X-ray Read: 04/07/2025 X-ray left foot 3 views (AP, MO, Lateral) reviewed which shows mild forefoot met adductus deformity, joint space narrowing of the tarsometatarsal joints. Hallux abductovalgus deformity. no fractures, dislocations, or gross abnormalities. Bone density is within normal limits. Normal anatomy. No evidence of swelling, foreign body, or calcifications. I personally reviewed the imaging and my findings are listed above. Podiatry X-ray Read: 04/07/2025 X-ray right ankle 3 views (AP, Mortise, Lateral) reviewed which shows talocrural angle of 76. no fractures, dislocations, osteochondral defects. posterior talus ossified accessory bone. Anatomic alignment of the tibiotalar joint. Bone density is within normal limits. No evidence of swelling, foreign body, or calcifications. I personally reviewed the imaging and my findings are listed above. Podiatry X-ray Read: 04/07/2025 X-ray left ankle 3 views (AP, Mortise, Lateral) reviewed which shows talocrural angle of 78. no fractures, dislocations, osteochondral defects. posterior talus ossified accessory bone. Anatomic alignment of the tibiotalar joint. Bone density is within normal limits. No evidence of swelling, foreign body, or calcifications. I personally reviewed the imaging and my findings are listed above. Podiatry X-ray Read: 04/07/2025 X-ray right tib-fib 2 views (AP, Lateral) reviewed which shows no fractures, dislocations, or gross abnormalities. Bone density is within normal limits. Normal anatomy. No evidence of swelling, foreign body, or calcifications. I personally reviewed the imaging and my findings are listed above. Podiatry X-ray Read: 04/07/2025 X-ray left tib-fib 2 views (AP, Lateral) reviewed which shows no fractures, dislocations, or gross abnormalities. Bone density is within normal limits. Normal anatomy. No evidence of swelling, foreign body, or calcifications. I personally reviewed the imaging and my findings are listed above. Assessment & Plan Assessment & Plan (1) Ankle tendinitis: Code(s): M77.50 - Other enthesopathy of unspecified foot and ankle Category: Medical Plan: Etiology includes anterior tibialis tendonitis and posterior tibialis tendonitis. Patient has high arch rigid cavus feet deformity. He will likely require custom foot orthoses, which we will discuss at next visit. Continue stretching and range of motion exercises. Referred for physical therapy. Recommended decreasing high impact activity at work to allow recovery. Follow up in 1 month (2) Diabetes mellitus with neuropathy: Code(s): E11.40 - Type 2 diabetes mellitus with diabetic neuropathy, unspecified Category: Medical Qualifiers: Diabetes mellitus type: type 2 Diabetes mellitus terminal manager insulin use: unspecified half-way insulin use status Qualified Code(s): E11.40 - Type 2 diabetes mellitus with diabetic neuropathy, unspecified Plan: Educated on glycemic control. (3) Venous insufficiency of both lower extremities: Code(s): I87.2 - Venous insufficiency (chronic) (peripheral) Category: Medical Plan: Referred for bilateral venous duplex studies Based on results, will likely referred to the [facility]. Orders: Orders PT Evaluation and Treatment Today M77.50 - Other enthesopathy of unspecified foot and ankle US venous duplex LE BI Today I87.2 - Venous insufficiency (chronic) (peripheral) Coding Level of Care Code Est Pt Level 3 (09763) Diagnoses Ankle tendinitis M77.50 Type 2 diabetes mellitus with diabetic neuropathy, unspecified whether terminal manager insulin use E11.40 Diabetes mellitus type: type 2 Diabetes mellitus terminal manager insulin use: unspecified terminal manager insulin use status Venous insufficiency of both lower extremities I87.2
[2025-04-09 08:45] VITALS: BMI 36.5
--- OUTSIDE RECORDS SUMMARY | 2025-04-09 09:07 | XMS_ITS | Continuity of Care Document ---
Author Organization [facility] [address] [facility] [address] [place] [address] Phone [phone] Care Team Providers Care Title Insurance Sales Representative Name Role Phone Noah Floyd M.D. Care Team Information Rece iver [phone] Joseluis Ohara MD Care Team Information Landscape Crew Member [phone] Problems Active Problems Provider Date Type 2 [...] ing Provider Date B-D Pen NDL SHRT 69UV5IY(11/06) Mack Use Three Times Daily Before A Meal And 1 Time AT Bedtime 300units Noah Floyd M.D. 06/19/2023 Metformin [id number] Tablets 1 tab by mouth twice a day 180tabs Noah Floyd M.D. 02/12/2023 Uznakdcbtzi865xb Tablets 1 by mouth every day Noah Floyd M.D. 06/15/2022 Kqdarxnzj24le Tablets Take half Tablet By Mouth Twice A Day as Directed 90tabs Noah Floyd M.D. 06/15/2022 Efkrwppolq34ah Tablets Take 1 And 1/2 Tablets By Mouth Every Morning 135tabs Shara Beckman M.D. 06/15/2022 Qmgzbmwas32cx Tablets 1 tab by mouth every day as directed 90tabs Noah Floyd M.D. 01/04/2022 Lantus Mgnmbcem639Segk/ML Solution Pen-Inject Inject 50 units under the skin twice a day 90ml Gabby Powell CNP 01/04/2022 Vyxmupz722Vmeq/ML Solution 10 u ac 30ml Noah Floyd M.D. 01/04/2022 Amlodipine Rusvmxvy0yg Tablets Take 1 Tablet By Mouth Once [...] 12/21/2024 8:00a Main Office LAWRENCE Escobar Z79.4 integration solution architect (cu rrent) use of insulin E11.3599 Type 2 diab with pro lif diab rtnop without mclr edema, unsp Assessments Date Code Description Provider 12/21/2024 Z79.4 integration solution architect (current) use of i nsulin LAWRENCE Escobar 12/21/2024 E11.3599 Type 2 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 edema, unspecified eye LAWRENCE Escobar Plan of Treatment Future Appointment(s):* 04/20/2025 8:00 am - Gabby Powell CNP at Main Office 08/21/2024 - LAWRENCE Escobar* E78.1 Hypertriglyceridemia * I10 Essential hypertension * Z79.4 longterm (current) use of insulin * E11.3599 Type 2 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
--- OUTSIDE RECORDS SUMMARY | 2025-04-09 09:07 | XMS_ITS | Patient Health Record ---
Author Organization [facility] Address [address] [place] [address] Care Team Providers Care Oracle Database Analyst Name Role Phone Nilson Huston MD Primary Care Provider Nicolas Boswell Unavailable [phone] Reason For Referral No Information Medications Medication [...] Problem Type II diabetes mellitus without complication (678673566) Diabetic - NIDDM (250.00) Active confirmed Problem Hammer toe (166748208) Hammer toe (735.4) Active confirmed Problem Ingrowing nail (256680319) Ingrowing Nail (703.0) Active confirmed Problem Onychomycosis (391476755) Onychomycosis (110.1) Active confirmed Problem Pain in limb (72149129) Pain in Limb (729.5) Active confirmed Plan Of Treatment Pending Test Test Name Order Date [id number] NAIL, 6 OR MORE 03/14/2011 [id number] NAIL, 6 OR MORE 05/30/2011 [id number] NAIL, 6 OR MORE 08/20/2011 [id number] NAIL, 6 OR MORE 10/29/2011 [id number] NAIL, 6 OR MORE 01/24/2012 [id number] NAIL, 6 OR MORE 04/24/2012 [id number] NAIL, 6 OR MORE 07/31/2012 [id number] NAIL, 6 OR MORE 11/03/2012 [id number] NAIL, 6 OR MORE 01/28/2013 [id number] NAIL, 6 OR MORE 04/30/2013 [id number]-Hwblmbaj Plate 07/31/2012 Insurance Providers Payer Name Payer Address Payer Phone Subscriber Number Group Number Insured Name Patient Relationship to Insured Coverage Start Date Coverage End Date [facility] [address] [place] [address] [id number] Swapnil Denton i Self - patient is the insured Medical (General) History Medical History History ICD Code Cholesterol diabetic chicken pox hypertension
== END 2025-04-09 09:06 | disposition home or self-care (01) ==
LOC: HO.HPODS 08:43
PROVIDERS: PCP Family Medicine; Visit Provider Student in an Organized Health Care Education/Training Program
DX: M77.50 Other enthesopathy of unspecified foot and ankle (principal); E11.40 Type 2 diabetes mellitus with diabetic neuropathy, unspecified; I87.2 Venous insufficiency (chronic) (peripheral)
CPT/HCPCS: 99213

== ENCOUNTER → 2025-04-09 08:42 | Outpatient (BNVA) | payer OTHER, SELFPAY | PROVIDERS: PCP Family Medicine; Visit Provider Student in an Organized Health Care Education/Training Program | DX: E11.40 Type 2 diabetes mellitus with diabetic neuropathy, unspecified (principal); I87.2 Venous insufficiency (chronic) (peripheral); M77.50 Other enthesopathy of unspecified foot and ankle | CPT/HCPCS: 99212 ==

== ENCOUNTER 2025-04-22 07:51 | Outpatient (AMB) | payer OTHER, SELFPAY ==
--- OUTSIDE RECORDS SUMMARY | 2025-04-22 07:56 | XMS_ITS | Continuity of Care Document ---
Author Organization [facility] [address] [facility] [address] [place] [address] Phone [phone] Care Team Providers Care Test Eng Name Role Phone Noah Floyd M.D. Care Team Information Rece iver [phone] Joseluis Ohara MD Care Team Information Ion Implant Machine Operator [phone] Problems Active Problems Provider Date Type 2 [...] ing Provider Date B-D Pen NDL SHRT 20TL1MT(11/06) Mack Use Three Times Daily Before A Meal And 1 Time AT Bedtime 300units Noah Floyd M.D. 06/19/2023 Metformin IPM3668iq Tablets 1 tab by mouth twice a day 180tabs Noah Floyd M.D. 02/12/2023 Shmbmtgfpmu603pf Tablets 1 by mouth every day Noah Floyd M.D. 06/15/2022 Jxzaztysi51nh Tablets Take half Tablet By Mouth Twice A Day as Directed 90tabs Noah Floyd M.D. 06/15/2022 Pbfqrlfcmw89sf Tablets Take 1 And 1/2 Tablets By Mouth Every Morning 135taadarsh Beckman M.D. 06/15/2022 Uqgrppqqu93ud Tablets 1 tab by mouth every day as directed 90tabs Noah Floyd M.D. 01/04/2022 Lantus Pscxumwz384Ezcu/ML Solution Pen-Inject Inject 50 units under the skin twice a day 90ml Gabby Powell CNP 01/04/2022 Nypamkm859Tivo/ML Solution 10 u ac 30ml Noah Floyd M.D. 01/04/2022 Amlodipine Vjypwifd9kh Tablets Take 1 Tablet By Mouth Once Daily 90taadarsh Beckman M.D. 12/01/2021 Vital Signs Date Vital Result Comment 04/20/2025 8:02am Height 69 inches 5'9 Results Test Acquired Date Facility Test Result [...] 12/21/2024 8:00a Main Office LAWRENCE Escobar Z79.4 care home (cu rrent) use of insulin E11.3599 Type 2 diab with pro lif diab rtnop without mclr edema, unsp Assessments Date Code Description Provider 04/20/2025 E11.3599 Type 2 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 edema, unspecified eye Gabby Powell CNP 04/20/2025 E11.319 Retinopathy due to diabetes mellitus Gabby Powell CNP 04/20/2025 I10 Essential hypertension Juana Powell CNP 12/21/2024 Z79.4 care home (current) use of i nsulin LAWRENCE Escobar 12/21/2024 E11.3599 Type 2 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 edema, unspecified eye LAWRENCE Escobar Plan of Treatment Future Appointment(s):* 06/07/2025 8:20 am - Gabby Powell CNP at Main Office 08/21/2024 - LAWRENCE Escobar* E78.1 Hypertriglyceridemia * I10 Essential hypertension * Z79.4 care home (current) use of insulin * E11.3599 Type 2 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
--- OUTSIDE RECORDS SUMMARY | 2025-04-22 07:57 | XMS_ITS | Patient Health Record ---
Author Organization [facility] Address [address] [place] [address] Care Team Providers Care Brake Operator Name Role Phone Nilson Huston MD Primary Care Provider Nicolas Boswell Unavailable [phone] Reason For Referral No Information Medications Medication [...] Problem Type II diabetes mellitus without complication (285219498) Diabetic - NIDDM (250.00) Active confirmed Problem Hammer toe (059598170) Hammer toe (735.4) Active confirmed Problem Ingrowing nail (930200066) Ingrowing Nail (703.0) Active confirmed Problem Onychomycosis (367193212) Onychomycosis (110.1) Active confirmed Problem Pain in limb (25871167) Pain in Limb (729.5) Active confirmed Plan Of Treatment Pending Test Test Name Order Date [id number] NAIL, 6 OR MORE 03/14/2011 [id number] NAIL, 6 OR MORE 05/30/2011 [id number] NAIL, 6 OR MORE 08/20/2011 [id number] NAIL, 6 OR MORE 10/29/2011 [id number] NAIL, 6 OR MORE 01/24/2012 [id number] NAIL, 6 OR MORE 04/24/2012 [id number] NAIL, 6 OR MORE 07/31/2012 [id number] NAIL, 6 OR MORE 11/03/2012 [id number] NAIL, 6 OR MORE 01/28/2013 [id number] NAIL, 6 OR MORE 04/30/2013 [id number] Plate 07/31/2012 Insurance Providers Payer Name Payer Address Payer Phone Subscriber Number Group Number Insured Name Patient Relationship to Insured Coverage Start Date Coverage End Date [facility] [address] [place] [address] [id number] Swapnil Denton i Self - patient is the insured Medical (General) History Medical History History ICD Code Cholesterol diabetic chicken pox hypertension
--- NOTE | 2025-04-22 08:00 | A.OFFVIS_ITS ---
Vital Signs 04/22/25 08:01 Height 5 ft 8 in Weight 240 lb BMI 36.5 Intake Visit Reasons: fu Diabetes Intake Note: Swapnil is a 54 year old male who presents today for a follow up on his Ankle Tendonitis. During his last visit he was referred to physical therapy and his appointment is scheduled for 05/26/25. patient reports he has seen slight improvement in his ankle pain by following the stretching exercises however he still has discomfort. Allergies No Known Allergies Allergy (Verified 04/22/25 08:01) HPI HPI fu Diabetes: Details: 54-year-old male with past medical history of type 2 diabetes mellitus, hypertension, hyperlipidemia who presents for 2 week follow up for bilateral ankle ankle pain. Patient states he has been doing the stretching and kqnab-pw-lrifnw exercises, notes mild relief. Still endorsing persistent pain to the front of his leg and side of his ankle. He states he has been doing a lot of activity at work ([employer]). He also notes bilateral lower extremity swelling after activity. He has not tried compression stockings yet. He has booked his physical therapy appointment for May. History: He states he sustained a fall proximally 5 months ago and has had chronic leg pain and bruising since then. He also notes pain to the top of his foot and ankles worst when ambulating. He has also been experiencing burning and tingling pain to his feet, worse to his left big toe. He denies any back pa in or history of back injuries. He denies any symptoms of nausea vomiting fever shortness of breath chest pain or chills. He states he has had difficulty with glycemic control after his fall however he is working with his PCP and perinatal specialist for further management. Patient works in [employer]. [facility] Medical History Major depressive disorder, single episode with anxious distress Adjustment disorder with anxiety Diabetes Surgical History H/O eye surgery Social History Housing: House Alcohol intake: never Patient Tobacco Use Status: Never used Tobacco e-Cigarette/Vaping Use: Never Used Second Hand Smoke Exposure: No service: No Current occupational status: employed Current occupational exposures/hazards: No Cognitive needs: No Hearing needs: No Vision needs: No Review of Systems Const All systems reviewed & are unremarkable except as noted in HPI and below Physical Exam Vital Signs: BMI result Body Mass Index 36.5 Extrem Other: *Bilateral Lower Extremity Focused Diabetic Foot Exam Vascular: DP/PT 2/4, CFT<3s to digits, TG warm to cool, no pedal edema, pedal hair absent from mid leg to toes. Varicose veins to the dorsal foot and medial ankle bilaterally. Derm: Skin: No open lesions, ulcerations, or calluses. Interdigital spaces: Macerations to interspaces 1 through 4 bilateral. Nails: Dystrophic, short nails. Neuro: [facility]-mireya monofilament (10g) test 10/10 intact to right foot, 10/10 intact to left foot. Msk: Mild tenderness along the anterior leg compartment bilaterally. Moderate tenderness along the anterior extensor tendons bilaterally and the the posterior tibial tendon from the distal leg to the navicular insertion. Deformities: High arch cavus feet bilaterally, non reducible on weight-bearing. Muscle strength: 5/5 in all muscle groups. Gait: Normal, no antalgic or steppage gait observed. Right heel 3-4 degrees of varus on weight-bearing. Left heel is neutral. Footwear Assessment: Shoes inspected; appropriate fit, no excessive wear, or foreign objects noted. Assessment & Plan Assessment & Plan (1) Ankle tendinitis: Code(s): M77.50 - Other enthesopathy of unspecified foot and ankle Category: Medical Plan: * Etiology includes anterior tibialis tendonitis and posterior tibialis tendonitis. Patient has high arch rigid cavus feet deformity. * Rx diclofenac 75 mg b.i.d. * Continue stretching and range of motion exercises. * Instructed to trial physical therapy prior to considering custom [place]e bracing. * Dispensed lace-up ankle brace for the right lower extremity. We will trial bracing treatment. If symptoms appear to resolve with bracing treatment, we will likely move forward with the custom bracing. * Discussed potential elective surgical reconstruction of his cavus feet deformity, however recommend exhausting conservative treatment measures 1st and trialing custom bracing. The patient also would be required to reduce his A1c below 6.5%. * Follow up in 1 month (2) Diabetes mellitus with neuropathy: Code(s): E11.40 - Type 2 diabetes mellitus with diabetic neuropathy, unspecified Category: Medical Qualifiers: Diabetes mellitus type: type 2 Diabetes mellitus automotive instructor insulin use: unspecified automotive instructor insulin use status Qualified Code(s): E11.40 - Type 2 diabetes mellitus with diabetic neuropathy, unspecified Plan: * Educated on glycemic control. * Referred for custom diabetic shoes with inserts with rearfoot posting to treat the varus hindfoot deformity. (3) Venous insufficiency of both lower extremities: Code(s): I87.2 - Venous insufficiency (chronic) (peripheral) Category: Medical Plan: * Pending bilateral venous duplex studies * Based on results, will likely referred to the Vein Clinic. * Recommended compression stockings Medications: New diclofenac sodium Take one tablet twice a day, with food. 75 mg PO BID PRN 40 tabs 0RF pain (scale score 4-6) [diabetic shoes] Please dispense diabetic shoes with 3 pairs of custom molded inserts. Please include rearfoot valgus post (3-4 degrees). 1 ea 0RF diabetes mellitus type 2 Coding Level of Care Code Est Pt Level 3 (04523) Diagnoses Ankle tendinitis M77.50 Type 2 diabetes mellitus with diabetic neuropathy, unspecified whether assisted insulin use E11.40 Diabetes mellitus type: type 2 Diabetes mellitus automotive instructor insulin use: unspecified automotive instructor insulin use status Venous insufficiency of both lower extremities I87.2 Time Spent (min) 30
[2025-04-22 08:01] VITALS: BMI 36.5
== END 2025-04-22 08:56 | disposition home or self-care (01) ==
PROVIDERS: PCP Family Medicine; Visit Provider Student in an Organized Health Care Education/Training Program
DX: M77.50 Other enthesopathy of unspecified foot and ankle (principal); E11.40 Type 2 diabetes mellitus with diabetic neuropathy, unspecified; I87.2 Venous insufficiency (chronic) (peripheral)
CPT/HCPCS: 99213

== ENCOUNTER → 2025-04-22 07:51 | Outpatient (BNVA) | payer OTHER, SELFPAY | PROVIDERS: PCP Family Medicine; Visit Provider Student in an Organized Health Care Education/Training Program | DX: E11.40 Type 2 diabetes mellitus with diabetic neuropathy, unspecified (principal); I87.2 Venous insufficiency (chronic) (peripheral); M77.50 Other enthesopathy of unspecified foot and ankle | CPT/HCPCS: 99212 ==

== ENCOUNTER 2025-05-24 08:19 | Outpatient (AMB) | payer OTHER, SELFPAY ==
--- NOTE | 2025-05-24 08:26 | MHC.OFFVIS ---
Vital Signs 05/24/25 08:27 Height 5 ft 8 in Weight 240 lb BMI 36.5 Intake Visit Reasons: fu diabetes Intake Note: Swapnil is a 54 year old male here for a follow up for ankle tendonitis. Patient advised to continue stretching and range of motion excerises. Prescribed diclofenac 75 mg b.i.d. Patient instructed to trial physical therapy to consider custom Alex bracing. Lace ?up ankle brace was dispensed for the right lower extremity. Patient received rx for diabetic shoes. Patient reports he hasn't been able to obtain the diabetic shoes and his appointment with PT is scheduled on Saturday. He also states he has been performing the range of motion exercises and using the brace and his pain has remained the same. Patient mentions while using the compression stocking and brace he finds his swelling increases. Allergies No Known Allergies Allergy (Verified 05/24/25 08:33) HPI HPI fu diabetes: Details: The patient is a 54 year old individual presenting for a follow-up visit for bilateral ankle tendinitis. The patient reports that the right ankle hurts more than the left. The patient has been using the lace-up ankle brace on the right ankle, which is perceived to be helpful, and also wears compression stockings. The patient notes more swelling in the right leg compared to the left which he believes may be from the brace. The patient performs stretching exercises at home and reports taking oral diclofenac, which seems to provide some relief. Despite these measures, the patient feels there has been no resolution in his ankle symptoms. The patient is scheduled to begin physical therapy this week. [facility] Medical History Major depressive disorder, single episode with anxious distress Adjustment disorder with anxiety Diabetes Surgical History H/O eye surgery Social History Housing: House Alcohol intake: never Patient Tobacco Use Status: Never used Tobacco e-Cigarette/Vaping Use: Never Used Second Hand Smoke Exposure: No service: No Current occupational status: employed Current occupational exposures/hazards: No Cognitive needs: No Hearing needs: No Vision needs: No Review of Systems Const All systems reviewed & are unremarkable except as noted in HPI and below Physical Exam Vital Signs: BMI result Body Mass Index 36.5 Extrem Other: *Bilateral Lower Extremity Focused Diabetic Foot Exam Vascular: DP/PT 2/4, CFT<3s to digits, TG warm to cool, no pedal edema, pedal hair absent from mid leg to toes. Varicose veins to the dorsal foot and medial ankle bilaterally. Derm: Skin: No open lesions, ulcerations, or calluses. Interdigital spaces: Macerations to interspaces 1 through 4 bilateral. Nails: Dystrophic, short nails. Neuro: [place]-mireya monofilament (10g) test 10/10 intact to right foot, 10/10 intact to left foot. Msk: Mild tenderness along the anterior leg compartment bilaterally. Moderate tenderness along the anterior extensor tendons bilaterally and the the posterior tibial tendon from the distal leg to the navicular insertion. Deformities: Rigid high arch cavus feet bilaterally, non reducible on weight-bearing. Muscle strength: 5/5 in all muscle groups. Gait: Normal, no antalgic or steppage gait observed. Right heel 3-4 degrees of varus on weight-bearing. Left heel is neutral. Footwear Assessment: Shoes inspected; appropriate fit, no excessive wear, or foreign objects noted. Results Reviewed Results Reviewed: Podiatry X-ray Read: 04/07/2025 X-ray right foot 3 views (AP, MO, Lateral) reviewed which shows forefoot met adductus deformity, joint space narrowing of the tarsometatarsal joints. Hallux abductovalgus deformity. no fractures, dislocations, or gross abnormalities. Bone density is within normal limits. Normal anatomy. No evidence of swelling, foreign body, or calcifications. I personally reviewed the imaging and my findings are listed above. Podiatry X-ray Read: 04/07/2025 X-ray left foot 3 views (AP, MO, Lateral) reviewed which shows mild forefoot met adductus deformity, joint space narrowing of the tarsometatarsal joints. Hallux abductovalgus deformity. no fractures, dislocations, or gross abnormalities. Bone density is within normal limits. Normal anatomy. No evidence of swelling, foreign body, or calcifications. I personally reviewed the imaging and my findings are listed above. Podiatry X-ray Read: 04/07/2025 X-ray right ankle 3 views (AP, Mortise, Lateral) reviewed which shows talocrural angle of 76. no fractures, dislocations, osteochondral defects. posterior talus ossified accessory bone. Anatomic alignment of the tibiotalar joint. Bone density is within normal limits. No evidence of swelling, foreign body, or calcifications. I personally reviewed the imaging and my findings are listed above. Podiatry X-ray Read: 04/07/2025 X-ray left ankle 3 views (AP, Mortise, Lateral) reviewed which shows talocrural angle of 78. no fractures, dislocations, osteochondral defects. posterior talus ossified accessory bone. Anatomic alignment of the tibiotalar joint. Bone density is within normal limits. No evidence of swelling, foreign body, or calcifications. I personally reviewed the imaging and my findings are listed above. Podiatry X-ray Read: 04/07/2025 X-ray right tib-fib 2 views (AP, Lateral) reviewed which shows no fractures, dislocations, or gross abnormalities. Bone density is within normal limits. Normal anatomy. No evidence of swelling, foreign body, or calcifications. I personally reviewed the imaging and my findings are listed above. Podiatry X-ray Read: 04/07/2025 X-ray left tib-fib 2 views (AP, Lateral) reviewed which shows no fractures, dislocations, or gross abnormalities. Bone density is within normal limits. Normal anatomy. No evidence of swelling, foreign body, or calcifications. I personally reviewed the imaging and my findings are listed above. Assessment & Plan Assessment & Plan (1) Ankle tendinitis: Code(s): M77.50 - Other enthesopathy of unspecified foot and ankle Category: Medical Plan: Etiology includes anterior tibialis tendonitis and posterior tibialis tendonitis. Patient has high arch rigid cavus feet deformity. Continue diclofenac 75 mg b.i.d. PRN pain Continue stretching and range of motion exercises. Patient to begin physical therapy this week. No significant improvement with lace-up ankle brace. May require surgical intervention over an alex brace. Will await full course of physical therapy. Discussed potential elective surgical reconstruction of his cavus feet deformity, however recommend exhausting conservative treatment measures first and trialing custom bracing. The patient also would be required to reduce his A1c below 6.5%. Follow up in 4-6 weeks. may require an MRI bilateral ankles + weight-bearing calc axial views for surgical planning. (2) Diabetes mellitus with neuropathy: Code(s): E11.40 - Type 2 diabetes mellitus with diabetic neuropathy, unspecified Category: Medical Qualifiers: Diabetes mellitus type: type 2 Diabetes mellitus terminal system operator insulin use: unspecified terminal system operator insulin use status Qualified Code(s): E11.40 - Type 2 diabetes mellitus with diabetic neuropathy, unspecified Plan: Educated on glycemic control. Referred for custom diabetic shoes with inserts with rearfoot posting to treat the varus hindfoot deformity. (3) Venous insufficiency of both lower extremities: Code(s): I87.2 - Venous insufficiency (chronic) (peripheral) Category: Medical Plan: Pending bilateral venous duplex studies Based on results, will likely referred to the Vein Clinic. Continue compression stockings Coding Level of Care Code Est Pt Level 3 (24464) Diagnoses Ankle tendinitis M77.50 Type 2 diabetes mellitus with diabetic neuropathy, unspecified whether terminal system operator insulin use E11.40 Diabetes mellitus type: type 2 Diabetes mellitus terminal system operator insulin use: unspecified terminal system operator insulin use status Venous insufficiency of both lower extremities I87.2 Time Spent (min) 20
[2025-05-24 08:27] VITALS: BMI 36.5
--- OUTSIDE RECORDS SUMMARY | 2025-05-24 08:35 | XMS_ITS | Patient Health Record ---
Author Organization [facility] Address [address] [place] [address] Care Team Providers Care Shelf Filler Name Role Phone Nilson Huston MD Primary Care Provider Nicolas Boswell Unavailable [phone] Reason For Referral No Information Medications Medication [...] Problem Type II diabetes mellitus without complication (348770183) Diabetic - NIDDM (250.00) Active confirmed Problem Hammer toe (732458947) Hammer toe (735.4) Active confirmed Problem Ingrowing nail (469435105) Ingrowing Nail (703.0) Active confirmed Problem Onychomycosis (495970790) Onychomycosis (110.1) Active confirmed Problem Pain in limb (92582897) Pain in Limb (729.5) Active confirmed Plan Of Treatment Pending Test Test Name Order Date [id number] NAIL, 6 OR MORE 03/14/2011 [id number] NAIL, 6 OR MORE 05/30/2011 [id number] NAIL, 6 OR MORE 08/20/2011 [id number] NAIL, 6 OR MORE 10/29/2011 [id number] NAIL, 6 OR MORE 01/24/2012 [id number] NAIL, 6 OR MORE 04/24/2012 [id number] NAIL, 6 OR MORE 07/31/2012 [id number] NAIL, 6 OR MORE 11/03/2012 [id number] NAIL, 6 OR MORE 01/28/2013 [id number] NAIL, 6 OR MORE 04/30/2013 [id number] Plate 07/31/2012 Insurance Providers Payer Name Payer Address Payer Phone Subscriber Number Group Number Insured Name Patient Relationship to Insured Coverage Start Date Coverage End Date [facility] [address] [place] [address] [phone] [id number] Swapnil Denton i Self - patient is the insured Medical (General) History Medical History History ICD Code Cholesterol diabetic chicken pox hypertension
--- OUTSIDE RECORDS SUMMARY | 2025-05-24 08:35 | XMS_ITS | Continuity of Care Document ---
Author Organization [facility] [address] [place] [address] Phone [phone] Care Team Providers Care Solar Energy Sales Specialist Name Role Phone Noah Floyd M.D. Care Team Information Rece iver [phone] Joseluis Ohara MD Care Team Information Butter Grader [phone] Problems Active Problems Provider Date Type 2 [...] ing Provider Date B-D Pen NDL SHRT 93QS5HW(11/06) Mack Use Three Times Daily Before A Meal And 1 Time AT Bedtime 300units Noah Floyd M.D. 06/19/2023 Metformin DOB4846vd Tablets 1 tab by mouth twice a day 180tabs Noah Floyd M.D. 02/12/2023 Usomoioupgn832hl Tablets 1 by mouth every day Noah Floyd M.D. 06/15/2022 Priplpkbh97qu Tablets Take half Tablet By Mouth Twice A Day as Directed 90tabs Noah Floyd M.D. 06/15/2022 Kbsicjetfk44kv Tablets Take 1 And 1/2 Tablets By Mouth Every Morning 135taadarsh Beckman M.D. 06/15/2022 Fnmbfxiax27ya Tablets 1 tab by mouth every day as directed 90tabs Noah Floyd M.D. 01/04/2022 Lantus Gtpefxpf882Ztkq/ML Solution Pen-Inject Inject 50 units under the skin twice a day 90ml Gabby Powell CNP 01/04/2022 Plbgeug507Dvux/ML Solution 10 u ac 30ml Noah Floyd M.D. 01/04/2022 Amlodipine Rrurkgmy2ti Tablets Take 1 Tablet By Mouth Once [...] 12/21/2024 8:00a Main Office LAWRENCE Escobar Z79.4 [facility] ([facility]rent) use of insulin E11.3599 Type 2 diab with pro lif diab rtnop without mclr edema, unsp Assessments Date Code Description Provider 04/20/2025 E11.3599 Type 2 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 edema, unspecified eye Gabby Powell CNP 04/20/2025 E11.319 Retinopathy due to diabetes mellitus Gabby Powell CNP 04/20/2025 I10 Essential hypertension Juana Powell CNP 12/21/2024 Z79.4 [facility] (current) use of i nsulin LAWRENCE Escobar 12/21/2024 E11.3599 Type 2 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 edema, unspecified eye LAWRENCE Escobar Plan of Treatment Future Appointment(s):* 06/07/2025 8:20 am - Gabby Powell CNP at Main Office 08/21/2024 - [facility]WR[facility] Escobar* E78.1 Hypertriglyceridemia * I10 Essential hypertension * Z79.4 [facility] (current) use of insulin * E11.3599 Type 2 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
== END 2025-05-24 08:39 | disposition home or self-care (01) ==
LOC: HO.HPODS 08:20
PROVIDERS: PCP Family Medicine; Visit Provider Student in an Organized Health Care Education/Training Program
DX: M77.50 Other enthesopathy of unspecified foot and ankle (principal); E11.40 Type 2 diabetes mellitus with diabetic neuropathy, unspecified; I87.2 Venous insufficiency (chronic) (peripheral)
CPT/HCPCS: 99213

== ENCOUNTER → 2025-05-24 08:19 | Outpatient (BNVA) | payer OTHER, SELFPAY | PROVIDERS: PCP Family Medicine; Visit Provider Student in an Organized Health Care Education/Training Program | DX: M77.50 Other enthesopathy of unspecified foot and ankle (principal); E11.40 Type 2 diabetes mellitus with diabetic neuropathy, unspecified; I87.2 Venous insufficiency (chronic) (peripheral) | CPT/HCPCS: 99212 ==

== ENCOUNTER 2025-06-16 09:21 | Outpatient (AMB) | payer OTHER, SELFPAY ==
--- OUTSIDE RECORDS SUMMARY | 2025-06-16 09:25 | XMS_ITS | Patient Health Record ---
Author Organization [facility] Address [address] [place] [address] Care Team Providers Care Laboratory Technical Specialist Name Role Phone Nilson Huston MD Primary Care Provider Nicolas Boswell Unavailable [phone] Reason For Referral No Information Medications Medication [...] Problem Type II diabetes mellitus without complication (771850145) Diabetic - NIDDM (250.00) Active confirmed Problem Hammer toe (290713919) Hammer toe (735.4) Active confirmed Problem Ingrowing nail (366380941) Ingrowing Nail (703.0) Active confirmed Problem Onychomycosis (612195885) Onychomycosis (110.1) Active confirmed Problem Pain in limb (48609014) Pain in Limb (729.5) Active confirmed Plan Of Treatment Pending Test Test Name Order Date [id number] NAIL, 6 OR MORE 03/14/2011 [id number] NAIL, 6 OR MORE 05/30/2011 [id number] NAIL, 6 OR MORE 08/20/2011 [id number] NAIL, 6 OR MORE 10/29/2011 [id number] NAIL, 6 OR MORE 01/24/2012 [id number] NAIL, 6 OR MORE 04/24/2012 [id number] NAIL, 6 OR MORE 07/31/2012 [id number] NAIL, 6 OR MORE 11/03/2012 [id number] NAIL, 6 OR MORE 01/28/2013 [id number] NAIL, 6 OR MORE 04/30/2013 [id number]-Toueavke Plate 07/31/2012 Insurance Providers Payer Name Payer Address Payer Phone Subscriber Number Group Number Insured Name Patient Relationship to Insured Coverage Start Date Coverage End Date [facility] [address] [place] [address] [id number] Swapnil Denton i Self - patient is the insured Medical (General) History Medical History History ICD Code Cholesterol diabetic chicken pox hypertension
--- OUTSIDE RECORDS SUMMARY | 2025-06-16 09:25 | XMS_ITS | Continuity of Care Document ---
Author Organization [facility] [address] [facility] [address] [place] [address] Phone [phone] Care Team Providers Care Able Bodied Seaman Name Role Phone Noah Floyd M.D. Care Team Information Rece iver [phone] Joseluis Ohara MD Care Team Information [address] Judge [phone] Problems Active Problems Provider Date Type 2 [...] ing Provider Date B-D Pen NDL SHRT [id number](11/06) Mack Use Three Times Daily Before A Meal And 1 Time AT Bedtime 300units Noah Floyd M.D. 06/19/2023 Metformin [id number] Tablets 1 tab by mouth twice a day 180tabs Noah Floyd M.D. 02/12/2023 Mrfoczgekjb036za Tablets 1 by mouth every day Noah Floyd M.D. 06/15/2022 Eaxvwzgny30cf Tablets Take half Tablet By Mouth Twice A Day as Directed 90tabs Noah Floyd M.D. 06/15/2022 Gcasydbzpz53jo Tablets Take 1 And 1/2 Tablets By Mouth Every Morning 135tabs Shara Beckman M.D. 06/15/2022 Qpzpcbflq69yl Tablets 1 tab by mouth every day as directed 90tabs Noah Floyd M.D. 01/04/2022 Lantus Prjvrbve107Urix/ML Solution Pen-Inject Inject 50 units under the skin twice a day 90ml Gabby Powell CNP 01/04/2022 Tksmyjr485Ybxf/ML Solution 10 u ac 30ml Noah Floyd M.D. 01/04/2022 Amlodipine Idassuup0la Tablets Take 1 Tablet By Mouth Once [...] Glucose Fingerstick 01/05/2022 Inhouse Glucose Fingerstick 259 Procedures Date Code Description Status 06/07/2025 NSHOWOFF No Show Office Visit Complet ed Medical Devices Description No Information Available Encounters Type Date Location Provider Dx Diagnosis Office Visit 12/21/2024 8:00a Main Office LAWRENCE Escobar Z79.4 [facility] (cu rrent) use of insulin E11.3599 Type 2 diab with pro lif diab rtnop without mclr edema, unsp Assessments Date Code Description Provider 06/07/2025 E11.3599 Type 2 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 edema, unspecified eye Gabby Powell CNP 06/07/2025 I10 Essential hypertension Juana Powell, [employer]ACK [employer] 06/07/2025 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 Gabby Powell, TACK MA[employer] 04/20/2025 E11.3599 Type 2 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 edema, unspecified eye Gabby Powell, [facility] 04/20/2025 E11.319 Retinopathy due to diabetes mellitus Gabby Powell, TACK MAKER 04/20/2025 I10 Essential hypertension Juana Powell, TACK MAKER 12/21/2024 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 LAWRENCE Bazan 12/21/2024 E11.3599 Type 2 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 edema, unspecified eye LAWRENCE Escobar Plan of Treatment 08/21/2024 - LAWRENCE Escobar* E78.1 Hypertriglyceridemia * I10 Essential hypertension * 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
--- NOTE | 2025-06-16 09:29 | MHC.PC.OV ---
Vital Signs 06/16/25 09:32 Height 5 ft 8 in Weight 257 lb 8 oz BMI 39.1 BP 138/84 Blood Pressure Location Rt brachial Position Sitting Respiration 16 Pulse 90 Pulse Source Pulse Oximeter Temp 97.6 F Temp Source Temporal Artery Scan Pulse Oximetry (%) 95 Oxygen Delivery Method Room Air Intake Visit Reasons: f/u DM Intake Note: Swapnil presents in the office today for a follow up to diabetes. Screen Operator Required: No Allergies No Known Allergies Allergy (Verified 06/16/25 09:30) Medication List - Last Reconciled 06/16/25 by Joseluis Ohara MD amlodipine 5 mg PO DAILY 90 days atorvastatin 10 mg PO BEDTIME 30 days betamethasone valerate 0.1% 1 appl topical BID PRN 30 days ciclopirox 0.77% 1 appl topical DAILY 4 weeks [diabetic shoes Please dispense diabetic shoes with 3 pairs of custom molded inserts. Please include rearfoot valgus post (3-4 degrees).] diclofenac sodium 75 mg PO BID PRN empagliflozin (Jardiance) 25 mg PO DAILY 90 days fenofibrate 160 mg PO DAILY 30 days glipizide ER 10 mg PO DAILY 30 days insulin glargine (Lantus Solostar U-100 Insulin) 56 units (0.56 mL) subcut BID 30 days lisinopril 15 mg PO QAM metformin 1,000 mg PO BID 90 days mirtazapine 15 mg PO BEDTIME mupirocin 2% 1 appl topical BID 10 days pen needle, diabetic (BD Ultra-Fine Short Pen Needle) As directed Tobacco use date assessed: 06/16/25 Dental Screening Dental Screen Date: 06/16/25 Did you have a dental visit in the last 12 months?: Yes Did you have a dental problem in the last 6 months where you did not have access to dental care?: No Was dental information given to patient?: Patient has dentist HPI f/u DM HPI Details 54 y/o male presents to f/u diabetes. Last A1c 02/24/25 10.8%. Increased his glipizide. Recommended follow up with endocrinology. Unable to get A1c today. Pt reports blood sugars in the 200s range. Denies any low blood sugars. Elevated PSA level. Blood pressure 138/84, 90p. [facility] Medical History Major depressive disorder, single episode with anxious distress Adjustment disorder with anxiety Diabetes Surgical History H/O eye surgery Social History (Updated 06/16/25 @ 09:31 by Jenifer Rahman [facility]) Housing: House Alcohol intake: never Patient Tobacco Use Status: Never used Tobacco e-Cigarette/Vaping Use: Never Used Second Hand Smoke Exposure: No service: No Current occupational status: employed Current occupational exposures/hazards: No Cognitive needs: No Hearing needs: No Vision needs: No Questionnaire Thrive Questionnaire Date Thrive assessed: 08/12/24 I am a: Patient What is your living situation today?: I have a steady place to live Within the past 12 months, did the food you bought not last and you didn't have the money to get more?: Sometimes True Within the past 12 months, did you worry whether your food would run out before you got money to buy more?: Sometimes True Do you have trouble paying for medicines?: No Do you have trouble getting transportation to medical appointments?: No Do you have trouble paying your heating and electricity bill?: No Do you have trouble taking care of your child, family member or friend?: No Do you have trouble with day-to-day activities such as bathing, preparing meals, shopping, managing finances, etc.?: No Are you currently unemployed and looking for a job?: No Are you interested in more education?: No Currently or been in a relationship where the following occur: I choose not to answer THRIVE Score: 2 SHARON-7 AMB Questionnaire SHARON-7 Date SHARON - 7 assessed: 11/17/24 Source: Developed by Drs. Ar Peres, Luann Wong, Philip Cosme and colleagues, with an educational efe from [employer]. Review of Systems Const Denies chills, Denies fatigue, Denies fever(s), Denies headache(s) and Denies weakness ENT Denies dizziness and Denies headache(s) Card Denies dyspnea Resp Denies cough, Denies dyspnea, Denies wheezing and Denies other (shortness of breath) Musc Denies numbness and Denies tingling Neuro Denies dizziness, Denies headache(s), Denies numbness, Denies tingling and Denies weakness Psych Denies anxiety and Denies depression Endo Denies fatigue Aller/Immun Denies wheezing Physical exam (Primary Care) Vital Signs: Last Vital Signs Temp 97.6 F 06/16/25 09:32 Pulse 90 06/16/25 09:32 Resp 16 06/16/25 09:32 BP 138/84 06/16/25 09:32 Pulse Ox 95 06/16/25 09:32 Oxygen Delivery Method Room Air 06/16/25 09:32 BMI result Body Mass Index 39.1 Tobacco/Smoking Status: Tobacco use Status Tobacco use date assessed 06/16/25 06/16/25 09:35 Patient Tobacco Use Status Never used Tobacco 06/16/25 09:35 e-Cigarette/Vaping Use Never Used 06/16/25 09:35 Thrive Assessment: Date of Thrive Assessment Date Thrive assessed 08/12/24 06/16/25 09:35 Currently or been in a relationship where the following occur: I choose not to answer Const General: well developed; No acute distress Nutritional Appearance: well nourished Orientation/consciousness: patient oriented x3 HENMT Head: Yes normocephalic and Yes atraumatic Eyes General: appearance normal, both eyes and all related structures Pupils: Equal, round and reactive pupils present EOM: EOMs intact bilaterally Resp Effort & Inspection: normal respiratory effort Auscultation: clear to auscultation bilaterally Cardio Rate: regular rate Rhythm: regular rhythm Heart sounds: S1 normal heart sound present, S2 normal heart sound present, no gallops, no murmurs and no rubs Neuro General: patient oriented x3 and gait normal Cranial nerves: Yes Equal, round and reactive pupils present Psych Affect: normal affect Results AMB Fasting Glucose AMB Fasting Glucose 393 mg/dL Last Edit by Jenifer Rahman CMA on 06/16/25 10:00 Coding Level of Care Code Est Pt Level 4 (86774) Diagnoses Diabetes E11.9 Elevated PSA R97.20 Hypertension I10 Assessment & Plan Assessment & Plan (1) Diabetes: Code(s): E11.9 - Type 2 diabetes mellitus without complications Category: Medical Plan: Last A1c was over 10%. Unable to get an A1c today but his blood sugar is over 300 and he notes that blood sugars are consistently around 250 all the time. No low blood sugars Increasing Lantus - Titration described. Continue metformin, glipizide and Jardiance as prescribed Watch for low blood sugars. (2) Elevated PSA: Code(s): R97.20 - Elevated prostate specific antigen [PSA] Category: Medical Plan: PSA was elevated previously. He has not gotten repeat lab work done At this point, will refer him to Urology (3) Hypertension: Code(s): I10 - Essential (primary) hypertension Category: Medical Plan: Blood pressure is controlled. Goal is less than 140/90 Continue current medications Orders: Orders AMB Hemoglobin A1c Today E11.40 - Type 2 diabetes mellitus with diabetic neuropathy, unspecified, E11.65 - Type 2 diabetes mellitus with hyperglycemia, E11.9 - Type 2 diabetes mellitus without complications Lipid Panel Today E78.5 - Hyperlipidemia, unspecified, Z00.00 - Encounter for general adult medical examination without abnormal findings AMB Fasting Glucose Today E11.9 - Type 2 diabetes mellitus without complications, Z13.9 - Encounter for screening, unspecified Hemoglobin A1c Today E11.65 - Type 2 diabetes mellitus with hyperglycemia, R73.01 - Impaired fasting glucose Comprehensive [place]. Panel Fast Today E11.65 - Type 2 diabetes mellitus with hyperglycemia, Z00.00 - Encounter for general adult medical examination without abnormal findings Prostate Specific Antigen Scr Today R97.20 - Elevated prostate specific antigen [PSA], Z12.5 - Encounter for screening for malignant neoplasm of prostate Fructosamine Today E11.65 - Type 2 diabetes mellitus with hyperglycemia Referrals Urology Referral R97.20 - Elevated prostate specific antigen [PSA]
[2025-06-16 09:32] VITALS: BP 138/84; PULSE 90; RESP 16; TEMP 36.4; O2SAT 95; BMI 39.1
== END 2025-06-16 10:06 | disposition home or self-care (01) ==
LOC: HO.HMCFM 09:22
PROVIDERS: PCP Family Medicine; Visit Provider Family Medicine
DX: E11.9 Type 2 diabetes mellitus without complications (principal); R97.20 Elevated prostate specific antigen [PSA]; I10 Essential (primary) hypertension; Z13.9 Encounter for screening, unspecified

== ENCOUNTER → 2025-06-16 09:21 | Outpatient (BNVA) | payer OTHER, SELFPAY | PROVIDERS: PCP Family Medicine; Visit Provider Family Medicine | DX: E11.9 Type 2 diabetes mellitus without complications (principal); R97.20 Elevated prostate specific antigen [PSA]; I10 Essential (primary) hypertension; Z79.84 Long term (current) use of oral hypoglycemic drugs; Z79.4 Long term (current) use of insulin | CPT/HCPCS: 82948; 99212 ==